=== PATIENT | male | born 1945 | race Caucasian/White ===

== ENCOUNTER 2017-02-21 21:23 | Observation (INO) | payer OTHER ==
--- NOTE | 2017-02-21 21:32 | EDPHY ---
H & P Time Seen by Provider: 02/21/17 21:32 HPI/ROS: CHIEF COMPLAINT: Word-finding difficulty HISTORY OF PRESENT ILLNESS: from EMS was normal at 1700. Discussed with the Nancy elltfbvx-sd-uim who says she was on the phone with him at 8:45 p.m. and noted that he was having trouble with words. Every 4th or 5th word would be understandable, the rest would "not be Macedonian." Or would not be understandable. On arrival the patient admits that he has some word-finding difficulty. Apparently he has some chronic left-sided deficits after previous stroke. REVIEW OF SYSTEMS: Eye: Patient denies change in vision. ENT: no sore throat Cardiac: no chest pain or syncope Pulmonary: no cough or SOB Abdomen: no vomiting, diarrhea, abdominal pain Musculoskeletal: no back pain or neck pain Skin: no rash Neuro: no headache Constitutional: no fever : no urinary symptoms A comprehensive 10 point review of systems is otherwise negative aside from elements mentioned in the history of present illness. PAST MEDICAL HISTORY: Previous stroke, hypertension Social history: Some history from the son and [id number]-rz-[id number] General Appearance: Alert and conversant, cooperative. Eyes: No scleral icterus. Extraocular motion intact. ENT, Mouth: Normal mucous membranes. Respiratory: Normal respiratory effort, breath sounds equal, lungs are clear to auscultation. Cardiovascular: Regular rate and rhythm. Gastrointestinal: Abdomen is soft and non tender. Neurological: Alert and follows simple commands Face symmetric, normal movement and sensation in all extremities. Has good senior gl accountant strength bilaterally and can lift each leg off the bed independently. Word finding difficulty; when asked to name a my pen he calls it "a television, " he is able to name my "wrist watch," when I hold up his glasses he says that they are "my wrist watch"; left visual field cut to confrontation. Skin: Warm and dry, no rashes. Musculoskeletal: No peripheral edema and no joint swelling. Psychiatric: Not agitated. Emergency Department course/MDM: Dr. Maddox 944pm [facility]. Plan for noncontrast head CT, proceed directly to angiography if negative. He is clearly out of the IV Activase window as his last known normal is 1700 tonight, which would put him greater than 4.5 hours after potential earliest onset of symptoms. 2156: Previous ED visit for expressive aphasia in October 17, 2016 reviewed by myself. Discussed with Nancy again at 2204. Admission for possible ischemic stroke. The frdvga-ku-vjw confirms that his word-finding difficulty was substantially worse than anything previously, including his episode in September of last year. Does not currently have indications for IV Activase or IR therapy. Smoking Status: Never smoked Constitutional: Initial Vital Signs Temperature (C) 36.9 C 02/21/17 21:38 Heart Rate 72 02/21/17 21:38 Respiratory Rate 18 02/21/17 21:38 Blood Pressure 168/98 H 02/21/17 21:38 O2 Sat (%) 94 02/21/17 21:38 O2 Delivery Mode Room Air Allergies/Adverse Reactions: HAY FEVER Allergy (Uncoded 02/21/17 21:37) Home Medications: Medication Instructions Recorded Acetaminophen [Tylenol 325mg (*)] 650 mg PO Q4 PRN #0 tab 11/26/14 Lisinopril [Zestril 10 mg (*)] 20 mg PO BID #0 tab 11/26/14 Tamsulosin HCl [Flomax 0.4 MG (*)] 0.4 mg PO HS #0 cap 11/26/14 amLODIPine BESYLATE [Norvasc 10 mg 10 mg PO HS #0 tab 11/26/14 (*)] hydrALAZINE [Apresoline 10 mg (*)] 10 mg PO QID PRN #0 tab 11/26/14 Atorvastatin Calcium [Lipitor 40 60 mg PO DAILY18 12/15/15 mg (*)] Clopidogrel Bisulfate [Plavix (*)] 75 mg PO DAILY #30 tab 12/15/15 Metoprolol Tartrate 12.5 mg PO BID #60 tablet 12/15/15 Medical Decision Making - Diagnostics EKG Interpretation: 12-lead EKG interpreted by me; official reading is in trace master. My interpretation is sinus rhythm with PVC, LVH. Imaging: Imaging Impressions Head CT 02/21/17 21:42 Impression: 1. Old right occipital lobe infarct. 2. No acute hemorrhage, hydrocephalus, or mass effect. 3. Cerebrovascular atherosclerosis. 4. No definite acute infarct. 5. Moderate atrophy especially bilateral occipital lobes. 6. Mild Microvascular ischemic gliosis. 7. Consider MRI of the brain without and with contrast enhancement, if there is continued clinical concern. Findings and recommendations discussed with Emergency Department physician, CARMEN WALETRS at 2150 hour, 02/21/2017. Final report concurs with initial preliminary interpretation. Chest X-Ray 02/21/17 21:46 Impression: 1. Atherosclerotic aorta. 2. No acute pulmonary disease. Head CTA 02/21/17 21:46 Impression: 1. Moderate atherosclerotic plaque of the thoracic aorta. 2. Mild atherosclerotic disease bilateral carotid bulbs, without flow-limiting stenosis, occlusion, or dissection. 3. Dominant right vertebral artery, without occlusion or dissection. Measurement of carotid stenosis is based on the residual internal carotid diameter with [place] Symptomatic Carotid Endarterectomy Trial (NASCET) based stenosis levels. CT Angiogram of the Brain Clinical Indications: Stroke protocol. Word finding difficulty, old right occipital infarct. Technique: CT angiogram of the brain and neck was performed, with the uneventful intravenous administration of 85 mL Isovue-370 contrast. Multiplanar reconstructions including 3D reconstructions performed and evaluated on [id number] workstation in order to better evaluate the [place] vessels. Images were manipulated by the radiologist at the computer workstation. Dose reduction techniques were utilized. Findings: Major vessels of the [place] are adequately displayed, demonstrating old complete occlusion of the right posterior cerebral artery, with associated right occipital lobe infarct. Left posterior cerebral artery is patent. The right internal carotid artery is smaller but patent. Bilateral anterior and middle cerebral arteries are patent, without intraluminal thrombi or complete occlusion. Impression: 1. Old infarct in the right posterior cerebral artery, with absent vessel. 2. No acute intraluminal thrombi or complete occlusion of bilateral internal carotid arteries, right vertebral artery, bilateral anterior and bilateral middle cerebral arteries. The left posterior cerebral artery appears patent. Findings and recommendations discussed with Emergency Department physician, Carmen Walters M.D., at 2215 hours, on February 21, 2017. Final report concurs with initial preliminary interpretation. Neck CTA 02/21/17 21:46 Impression: 1. Moderate atherosclerotic plaque of the thoracic aorta. 2. Mild atherosclerotic disease bilateral carotid bulbs, without flow-limiting stenosis, occlusion, or dissection. 3. Dominant right vertebral artery, without occlusion or dissection. Measurement of carotid stenosis is based on the residual internal carotid diameter with [place] Symptomatic Carotid Endarterectomy Trial (NASCET) based stenosis levels. CT Angiogram of the Brain Clinical Indications: Stroke protocol. Word finding difficulty, old right occipital infarct. Technique: CT angiogram of the brain and neck was performed, with the uneventful intravenous administration of 85 mL Isovue-370 contrast. Multiplanar reconstructions including 3D reconstructions performed and evaluated on Vitrea workstation in order to better evaluate the [place] vessels. Images were manipulated by the radiologist at the computer workstation. Dose reduction techniques were utilized. Findings: Major vessels of the [place] are adequately displayed, demonstrating old complete occlusion of the right posterior cerebral artery, with associated right occipital lobe infarct. Left posterior cerebral artery is patent. The right internal carotid artery is smaller but patent. Bilateral anterior and middle cerebral arteries are patent, without intraluminal thrombi or complete occlusion. Impression: 1. Old infarct in the right posterior cerebral artery, with absent vessel. 2. No acute intraluminal thrombi or complete occlusion of bilateral internal carotid arteries, right vertebral artery, bilateral anterior and bilateral middle cerebral arteries. The left posterior cerebral artery appears patent. Findings and recommendations discussed with Emergency Department physician, Carmen Walters M.D., at 2215 hours, on February 21, 2017. Final report concurs with initial preliminary interpretation. CT shows old right occipital infarct per Isuani, otherwise nothing acute at 9: 50 p.m., plan to proceed directly to angiography. Negative CT angio for large vessel occlusion per Isuani 2218. Differential Diagnosis: Differential considered including but not limited to seizure, stroke, hypoglycemia, intracranial bleed, TIA. Consult/Admit Bed Type: [facility] [place] [id number] Critical Care Time: Critical care time spent by me, Dr. Walters, exclusively with the care of this patient was 35 minutes, exclusive of PA or RECTIFICATION PRINTER time and exclusive of separate procedures. The organ system at risk was neurologic and I ordered multiple diagnostic studies, consultation with [facility], history from multiple sources, review of diagnostic studies; to stabilize the patient and prevent worsening of the patient's condition. - Data Points Laboratory Results: Laboratory Results 02/21/17 21:53 02/21/17 21:53 02/21/17 02/21/17 02/21/17 21:53 21:53 21:53 WBC 8.48 10^3/uL 10^3/uL (3.80-9.50) RBC 5.32 10^6/uL 10^6/uL (4.40-6.38) Hgb 16.5 g/dL g/dL (13.7-17.5) POC Hgb Hct 48.6 % % (40.0-51.0) POC Hct MCV 91.4 fL fL (81.5-99.8) MCH 31.0 pg pg (27.9-34.1) MCHC 34.0 g/dL g/dL (32.4-36.7) RDW 13.5 % % (11.5-15.2) Plt Count 166 10^3/uL 10^3/uL (150-400) MPV 10.1 fL fL (8.7-11.7) Neut % (Auto) 45.7 % % (39.3-74.2) Lymph % (Auto) 43.0 % % (15.0-45.0) [place] % (Auto) 8.5 % % (4.5-13.0) Eos % (Auto) 2.0 % % (0.6-7.6) Baso % (Auto) 0.6 % % (0.3-1.7) Nucleat RBC Rel Count 0.0 % % (0.0-0.2) Absolute Neuts (auto) 3.87 10^3/uL 10^3/uL (1.70-6.50) Absolute Lymphs (auto) 3.65 10^3/uL H 10^3/uL (1.00-3.00) Absolute Monos (auto) 0.72 10^3/uL 10^3/uL (0.30-0.80) Absolute Eos (auto) 0.17 10^3/uL 10^3/uL (0.03-0.40) Absolute Basos (auto) 0.05 10^3/uL 10^3/uL (0.02-0.10) Absolute Nucleated RBC 0.00 10^3/uL 10^3/uL (0-0.01) Immature Gran % 0.2 % % (0.0-1.1) Immature Gran # 0.02 10^3/uL 10^3/uL (0.00-0.10) PT 13.3 SEC SEC (12.0-15.0) INR 1.02 (0.83-1.16) POC Sodium Sodium 140 mEq/L mEq/L (134-144) POC Potassium Potassium 3.6 mEq/L mEq/L (3.5-5.2) POC Chloride Chloride 102 mEq/L mEq/L (97-110) Carbon Dioxide 25 mEq/l mEq/l (22-31) Anion Gap 13 mEq/L mEq/L (8-16) POC BUN BUN 28 mg/dL H mg/dL (7-23) Creatinine 1.1 mg/dL mg/dL (0.7-1.3) POC Creatinine Estimated GFR > 60 Glucose 106 mg/dL H mg/dL (70-100) POC Glucose Calcium 9.8 mg/dL mg/dL (8.5-10.4) Troponin I < 0.012 ng/mL ng/mL (0-0.034) 02/21/17 21:38 WBC RBC Hgb POC Hgb 17.0 gm/dL gm/dL (14.5-17.3) Hct POC Hct 50 % % (42.8-50.6) MCV MCH MCHC RDW Plt Count MPV Neut % (Auto) Lymph % (Auto) [place] % (Auto) Eos % (Auto) Baso % (Auto) Nucleat RBC Rel Count Absolute Neuts (auto) Absolute Lymphs (auto) Absolute Monos (auto) Absolute Eos (auto) Absolute Basos (auto) Absolute Nucleated RBC Immature Gran % Immature Gran # PT INR POC Sodium 143 mEq/L mEq/L (134-144) Sodium POC Potassium 3.4 mEq/L mEq/L (3.3-5.0) Potassium POC Chloride 102 mEq/L mEq/L (96-108) Chloride Carbon Dioxide Anion Gap POC BUN 30 mg/dL H mg/dL (7-23) BUN Creatinine POC Creatinine 1.2 mg/dL mg/dL (0.8-1.5) Estimated GFR Glucose POC Glucose 107 mg/dL H mg/dL (70-100) Calcium Troponin I Point of Care Test Results: 02/21/17 21:38 POC Sodium 143 POC Potassium 3.4 POC Chloride 102 POC BUN 30 H POC Creatinine 1.2 POC Glucose 107 H Departure - Departure Disposition: [facility] Inpatient Acute Clinical Impression: Word finding difficulty Condition: Good
[2017-02-21] MEDS ORDERED: IOPAMIDOL (ISOVUE 370) 100 ML BTL IV ONE (21:54)
[2017-02-21 21:58] LABS: % IMMATURE GRANULYOCYTES 0.2 % (0.0-1.1); ABSOLUTE IMMATURE GRANULOCYTES 0.02 10^3/uL (0.00-0.10); ADD DIFF? NO; ADD MORPH? NO; ADD SCAN? NO; ATYPICAL LYMPHOCYTE FLAG 10 (0-99); FRAGMENT RBC FLAG 0 (0-99); HEMATOCRIT 48.6 % (40.0-51.0); HEMOGLOBIN 16.5 g/dL (13.7-17.5); LEFT SHIFT FLG 0 (0-99); LIPEMIA HEMOLYSIS FLAG 90 (0-99); MEAN CELL VOLUME 91.4 fL (81.5-99.8); MEAN PLATELET VOLUME 10.1 fL (8.7-11.7); PLATELET CLUMPS FLAG 10 (0-99); PLATELET COUNT 166 10^3/uL (150-400); RED BLOOD CELL COUNT 5.32 10^6/uL (4.40-6.38); RED CELL DISTRIBUTION WIDTH 13.5 % (11.5-15.2)
[2017-02-21 22:08] LABS: CARBON DIOXIDE 25 mEq/l (22-31); CHLORIDE 102 mEq/L (97-110); INR 1.02 (0.83-1.16); POTASSIUM 3.6 mEq/L (3.5-5.2); PROTIME(PATIENT) 13.3 SEC (12.0-15.0); SODIUM 140 mEq/L (134-144)
[2017-02-21 22:09] LABS: ANION GAP 13 mEq/L (8-16); CALCIUM 9.8 mg/dL (8.5-10.4); CREATININE 1.1 mg/dL (0.7-1.3); GLOMERULAR FILTRATION RATE > 60; GLUCOSE 106 mg/dL (70-100)
[2017-02-21 22:20] LABS: TROPONIN I < 0.012 ng/mL (0-0.034)
--- NOTE | 2017-02-21 22:20 | CPEKG ---
Heart Rate: 63 RR Interval: 952 P-R Interval: 184 QRSD Interval: 84 QT Interval: 424 QTC Interval: 435 P [place]: 21 QRS [place]: -2 T Wave [place]: 11 EKG Severity - ABNORMAL ECG - EKG Impression: SINUS RHYTHM EKG Impression: PAIRED VENTRICULAR PREMATURE COMPLEXES EKG Impression: PROBABLE LEFT ATRIAL ABNORMALITY EKG Impression: LEFT VENTRICULAR HYPERTROPHY Electronically Signed By: Sixto Mathew 21-Feb-2017 22:21:29
[2017-02-22] MEDS ORDERED: LABETALOL HCL 5 MG/ML 20 ML MDV IVP PRN (01:15)
[2017-02-22] MEDS ORDERED: ONDANSETRON 4 MG/2 ML VIAL IVP PRN (01:15)
[2017-02-22] MEDS ORDERED: ONDANSETRON DISINTEGRATING 4 MG TAB PO PRN (01:15)
[2017-02-22] MEDS ORDERED: ACETAMINOPHEN 325 MG TAB PO PRN (01:15)
[2017-02-22] MEDS ORDERED: NS 1,000 ML IV SCH (01:15)
--- NOTE | 2017-02-22 01:58 | PDGENHP ---
History and Physical - Chief Complaint word salad, h/o CVA - History of Present Illness 71 yo male with h/o htn, hld and prior CVA in 2013 presented to ED after his cadxhv-ou-plv noted him to be speaking word eloina on the phone. He was last reported to be normal at 1700. No focal weakness or dizziness. No change from baseline visual deficits. He has a h/o prior CVA in 2013 and has had residual left sided weakness, left visual field cut, and mild expressive aphasia. He then presented in 11/2015 with TIA symptoms and at that time his daily aspirin was changed to Plavix. He has had at least 2 prolonged cardiac event monitors, which did not show A fib. His neurologist is Dr. Desai at [place]. He lives at [facility] and his vmdjpu-yl-pim is his DPOA. In the ED, [place] neurolog[facility] was consulted. His initial CT head was negative. He was not deemed a candidate for TpA given his onset of symptoms was 4.5 hrs prior to arrival. CTA head and neck was performed and is also negative. History Information - Allergies/Home Medication List Allergies/Adverse Reactions: HAY FEVER Allergy (Uncoded 02/21/17 21:37) Home Medications: Atorvastatin Calcium [Lipitor 40 mg (*)] 60 mg PO DAILY18 12/15/15 [Last Taken 12/14/15] I have personally reviewed and updated: family history, medical history, social history, surgical history - Past Medical History hypertension, hyperlipidemia Additional medical history: CVA 2013, TIA 2015, BPH - Surgical History Reports: no pertinent surgical hx - Family History Additional family history: Both parents are - Social History Smoking Status: Never smoked Alcohol Use: None Drug Use: None Additional social history: Lives at [facility]. Ryuegh-yd-mam is DPOA. Review of Systems ROS: 10pt was reviewed & negative except for what was stated in HPI & below Physical Exam Temp Pulse Resp BP Pulse Ox 36.9 C 59 L 16 137/81 H 93 02/22/17 00:09 02/22/17 00:09 02/22/17 00:09 02/22/17 00:09 02/22/17 00:09 Constitutional: no apparent distress Eyes: PERRL Ears, Nose, Mouth, Throat: moist mucous membranes, other (left visual field deficit to midline) Cardiovascular: regular rate and rhythym, no murmur, rub, or gallop, other ( frequent PVC's) Respiratory: no respiratory distress, clear to auscultation Gastrointestinal: normoactive bowel sounds, soft, non-tender abdomen Skin: warm Musculoskeletal: full muscle strength Neurologic: AAOx3, other (mild expressive aphasia, though speech is sensical and mostly fluent. 5/5 b/l LE and UE muscle strength, director of strategic sales strength symmetric. No facial droop. Neg pronator drift) Psychiatric: interacting appropriately Lab Data & Imaging Review 02/21/17 21:53 02/21/17 21:53 WBC 8.48 10^3/uL (3.80-9.50) 02/21/17 21:53 RBC 5.32 10^6/uL (4.40-6.38) 02/21/17 21:53 Hgb 16.5 g/dL (13.7-17.5) 02/21/17 21:53 POC Hgb 17.0 gm/dL (14.5-17.3) 02/21/17 21:38 Hct 48.6 % (40.0-51.0) 02/21/17 21:53 POC Hct 50 % (42.8-50.6) 02/21/17 21:38 MCV 91.4 fL (81.5-99.8) 02/21/17 21:53 MCH 31.0 pg (27.9-34.1) 02/21/17 21:53 MCHC 34.0 g/dL (32.4-36.7) 02/21/17 21:53 RDW 13.5 % (11.5-15.2) 02/21/17 21:53 Plt Count 166 10^3/uL (150-400) 02/21/17 21:53 MPV 10.1 fL (8.7-11.7) 02/21/17 21:53 Neut % (Auto) 45.7 % (39.3-74.2) 02/21/17 21:53 Lymph % (Auto) 43.0 % (15.0-45.0) 02/21/17 21:53 [place] % (Auto) 8.5 % (4.5-13.0) 02/21/17 21:53 Eos % (Auto) 2.0 % (0.6-7.6) 02/21/17 21:53 Baso % (Auto) 0.6 % (0.3-1.7) 02/21/17 21:53 Nucleat RBC Rel Count 0.0 % (0.0-0.2) 02/21/17 21:53 Absolute Neuts (auto) 3.87 10^3/uL (1.70-6.50) 02/21/17 21:53 Absolute Lymphs (auto) 3.65 10^3/uL (1.00-3.00) H 02/21/17 21:53 Absolute Monos (auto) 0.72 10^3/uL (0.30-0.80) 02/21/17 21:53 Absolute Eos (auto) 0.17 10^3/uL (0.03-0.40) 02/21/17 21:53 Absolute Basos (auto) 0.05 10^3/uL (0.02-0.10) 02/21/17 21:53 Absolute Nucleated RBC 0.00 10^3/uL (0-0.01) 02/21/17 21:53 Immature Gran % 0.2 % (0.0-1.1) 02/21/17 21:53 Immature Gran # 0.02 10^3/uL (0.00-0.10) 02/21/17 21:53 PT 13.3 SEC (12.0-15.0) 02/21/17 21:53 INR 1.02 (0.83-1.16) 02/21/17 21:53 POC Sodium 143 mEq/L (134-144) 02/21/17 21:38 Sodium 140 mEq/L (134-144) 02/21/17 21:53 POC Potassium 3.4 mEq/L (3.3-5.0) 02/21/17 21:38 Potassium 3.6 mEq/L (3.5-5.2) 02/21/17 21:53 POC Chloride 102 mEq/L (96-108) 02/21/17 21:38 Chloride 102 mEq/L (97-110) 02/21/17 21:53 Carbon Dioxide 25 mEq/l (22-31) 02/21/17 21:53 Anion Gap 13 mEq/L (8-16) 02/21/17 21:53 POC BUN 30 mg/dL (7-23) H 02/21/17 21:38 BUN 28 mg/dL (7-23) H 02/21/17 21:53 Creatinine 1.1 mg/dL (0.7-1.3) 02/21/17 21:53 POC Creatinine 1.2 mg/dL (0.8-1.5) 02/21/17 21:38 Estimated GFR > 60 02/21/17 21:53 Glucose 106 mg/dL (70-100) H 02/21/17 21:53 POC Glucose 107 mg/dL (70-100) H 02/21/17 21:38 Calcium 9.8 mg/dL (8.5-10.4) 02/21/17 21:53 Troponin I < 0.012 ng/mL (0-0.034) 02/21/17 21:53 Assessment & Plan Assessment: Non-sensical speech likely due to acute CVA - H/O prior CVA 2013 and TIA 2015. 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 No acute stroke seen on CTA head, old infarct in right posterior cerebral artery noted. No flow limiting stenosis on CTA neck. His symptoms have mostly resolved and he has returned to his baseline mild expressive aphasia symptoms. -Brain MRI and echo in am -Permissive htn, IV Labetalol for BP >220/120 -Monitor on tele. He's had 2 prior prolonged cardiac monitors with no e/o A fib -Cont Plavix -Neurology consult requested -PT/OT, speech evals planned Hypertension - permissive htn as above. Awaiting medication reconciliation. Hyperlipidemia - cont statin. DVT PPLX - Lovenox Code status - full code Dispo - admit to inpt status given acute CVA and need for further workup
[2017-02-22] MEDS ORDERED: D50W 25 GM/50 ML SYR IVP PRN (01:59)
[2017-02-22 05:42] LABS: CHOLESTEROL 94 mg/dL (140-220); CHOLESTEROL/HDL RATIO 2.24 RATIO (1.00-4.97); HIGH DENSITY LIPOPROTEIN 42 mg/dL (40-65); LDL/HDL RATIO 0.93 RATIO (1.00-3.64); LOW DENSITY LIPOPROTEIN 39 mg/dL (80-100); NON-HIGH DENSITY LIPOPROTEIN 52 mg/dL (90-129); TRIGLYCERIDE 67 mg/dL (40-150); VERY LOW DENSITY LIPOPROTEINS 13 mg/dL (8-25)
[2017-02-22] MEDS ORDERED: CLOPIDOGREL BISULFATE 75 MG TAB PO SCH ×2 (09:00→13:30)
[2017-02-22] MEDS ORDERED: ATORVASTATIN CALCIUM 40 MG TAB PO SCH (09:00)
[2017-02-22] MEDS ORDERED: ENOXAPARIN 40 MG/0.4 ML SYR SC SCH (09:00)
--- NOTE | 2017-02-22 09:11 | ECHO ---
[id number] + + [address] : : [place] [address] : : [phone] + + Adult Echocardiographic Report + -----+ :Name: PEE MANDUJANO Marcus Date: 02/22/2017 07:50 AM : : Hospital Admission Number: [id number] Location : 345: :: 1945 Gender: Male Height: 67 in : :Age: 71 yrs Race: WH Weight: 180 lb : :Reason For Study: Ischemic stroke : : BSA: 1.9 meters2 : + -----+ MMode/2D Measurements \T\ Calculations IVSd: 0.62 cm LVIDd: 5.2 cm FS: 36.1 % Ao root diam: LVPWd: 0.97 cm LVIDs: 3.3 cm EDV(Teich): 4.2 cm 127.4 ml LA dimension: ESV(Teich): 4.2 cm 44.1 ml EF(Teich): 65.4 % LVLd ap4: 7.6 cm SV(MOD-sp4): EDV(MOD-sp4): 32.0 ml 59.0 ml LVLs ap4: 6.8 cm ESV(MOD-sp4): 27.0 ml EF(MOD-sp4): 54.2 % Normal Measurement Values: + + :LVIDd (3.5-5.7cm) IVSd (0.6-1.1cm) LVPWd (0.6-1.1cm) Aortic Root (2.0-3.7cm)Left Atrium (1.5-4.0cm): :LV Vol(d) (76-115ml) LV Vol(s) (29-48ml) Ejec Fraction (50-65%)PV Ki (0.6- 1.2m/s) TV Ki (0.4-1.0m/s) : :MV E Ki (0.8-1.0m/s)MV A Ki (0.3-1.0m/s)LVOT Ki (0.7-1.2m/s) Asc Ao Ki ( 0.9-1.8m/s) : + + Doppler Measurements \T\ Calculations MV E max ki: Ao mean P.5 mmHg AI max ki: 325.8 cm/sec 108.1 cm/sec Ao V2 mean: AI max P.5 mmHg MV A max ki: 85.9 cm/sec 102.0 cm/sec AI dec slope: MV E/A: 1.3 Ao V2 VTI: 38.1 cm 184.6 cm/sec2 AI P1/2t: 516.9 msec Left Ventricle The left ventricle is normal in size. There is normal left ventricular wall thickness. Left ventricular systolic function is normal. Ejection Fraction = 65-70%. Septal motion is consistent with conduction abnormality. Right Ventricle The right ventricle is normal in size and function. Atria The left atrium is mildly dilated. Right atrial size is normal. Mitral Valve Nodular thickening of the posterior leaflet of the mitral valve. There is no evidence of mitral valve prolapse. There is no mitral valve stenosis. There is mild mitral regurgitation. Tricuspid Valve Normal tricuspid valve. There is trace tricuspid regurgitation. Aortic Valve Bicuspid aortic valve. There is fusion of the right and left coronary cusps. Moderate AV calcification. There is no aortic stenosis. Mild aortic regurgitation. Pulmonic Valve The pulmonic valve is normal in structure and function. There is no pulmonic valvular regurgitation. Great Vessels The aortic root is normal size. Pericardium/Pleural There is no pericardial effusion. Conclusion A complete two-dimensional transthoracic echocardiogram was performed (2D, M-mode, Doppler and color flow Doppler). No bubble study needed (done with TRANG 10/03 when the bubble study was negative). Frequent ectopy throughout exam Left ventricular systolic function is normal. Ejection Fraction = 65-70%. Septal motion is consistent with conduction abnormality. The left atrium is mildly dilated. Nodular thickening of the posterior leaflet of the mitral valve There is mild mitral regurgitation. There is trace tricuspid regurgitation. Bicuspid aortic valve. There is fusion of the right and left coronary cusps. Moderate AV calcification. No Mild aortic regurgitation. Compared with 12/15/2015, the aortic valve is more clearly bicuspid and was demonstrated as a bicuspid valve on 09/2014 TRANG. Ascending aorta was not well imaged on current study, but is know to be borderline dilated based on 12/15/2015 TTE. Final Reading Physician: Dr Maylin Valladares electronically signed on 02/22/2017 09:10 AM Ordering Physician: Luciana Arango Performed By: Twyla Okeefe, DAVIDCS
[2017-02-22] MEDS: INSULIN LISPRO 100 UNIT/ML SC SCH ×2 (09:36→12:38)
[2017-02-22] MEDS ORDERED: HYDROCORTISONE 1% CREAM TP PRN (13:06)
[2017-02-22] MEDS ORDERED: DOCUSATE SODIUM 100 MG CAP PO PRN (13:06)
--- NOTE | 2017-02-22 15:53 | GDS ---
[f rep st] DISCHARGE SUMMARY DISCHARGE DIAGNOSES: 1. Nonsensical speech thought to be due to an acute confusional episode. 2. Hypertension. 3. Dyslipidemia. 4. History of stroke. 5. History of dementia. 6. Bicuspid aortic valve. 7. Premature ventricular contractions. CONSULTANTS: Dr. Saeed Lynn, Neurology. HOSPITAL COURSE AND STAY BY PROBLEM: Acute confusional state: The patient [facility] to the [facility] with nonsensical speech. He underwent a stroke workup with CTA of the head and neck, as well as a brain MRI. The brain MRI was negative for acute stroke. On day of discharge, the patient was eval uated by Dr. Lynn from Neurology who I discussed the case with, who tells me that he thinks that his symptoms were related to an acute confusional state given that he does not have any findings on MRI and did not have any weakness to really make him think that this was a new ischemic event or TIA. PHYSICAL EXAMINATION: VITAL SIGNS: On day of discharge, blood pressure 154/72, pulse of 59, respir atory rate 14, O2 saturation 96% on room air. Temperature afebrile. GENERAL: No acute distress. HEART: S1, S2. LUNGS: Clear. ABDOMEN: Soft. EXTREMITIES: No edema. NEUROLOGIC: Face is symm etric. Cranial nerves 2-12 grossly intact. There is no pronator drift. Speech is fluent. The pat ient is confused, which is his baseline. DIAGNOSTICS DONE THIS HOSPITAL STAY: 1. Brain MRI done 02/22/2017: Refer to report. 2. Echocardiogram done 02/22/2017: Refer to report. DISCHARGE MEDICATIONS: The patient will be discharged on his current home medication regimen. Plea se refer to discharge medication reconciliation in [facility]. DISCHARGE INSTRUCTIONS: The patient will be discharged back to his assisted living where he should follow up with his neurologist. He should also be seen by his primary care provider and possibly a interpretative dancer for outpatient Holter monitoring. /[id number]
[2017-02-22 15:58] VITALS: BP 142/78; PULSE 50; RESP 15; TEMP 97.4; O2SAT 94
--- NOTE | 2017-02-22 16:53 | PDIAF ---
- Diagnosis Diagnosis: transient confusion Code Status: Full Code - Medication Management Discharge Medications: Medications to Continue on Transfer Acetaminophen [Tylenol 325mg (*)] 325 - 650 mg PO Q6HRS PRN 02/22/17 [Last Taken Unknown] Atorvastatin Calcium [Lipitor 20 mg (*)] 60 mg PO HS 02/22/17 [Last Taken ] Clopidogrel Bisulfate [Plavix (*)] 75 mg PO DAILY 02/22/17 [Last Taken 02/22/17] Cyanocobalamin [Vitamin B12 (*)] 1,000 mcg PO DAILY 02/22/17 [Last Taken ] Docusate Sodium [Colace 100 MG (*)] 100 mg PO DAILY PRN 02/22/17 [Last Taken Unknown] Donepezil HCl [Aricept 5 MG (*)] 2.5 mg PO DAILY 02/22/17 [Last Taken 02/22/17] Ergocalciferol [Vitamin D2 (*)] 50,000 unit PO TU 02/22/17 [Last Taken 02/21/17] Finasteride [Proscar 5 MG (*)] 5 mg PO HS 02/22/17 [Last Taken 02/21/17] Hydrocortisone 1% [Hydrocortisone 1% cream (*)] 1 alexys TP BID PRN 02/22/17 [Last Taken Unknown] Lisinopril [Zestril 20 mg (*)] 20 mg PO HS 02/22/17 [Last Taken 02/21/17] Metoprolol Tartrate [Lopressor 25 mg (*)] 12.5 mg PO BID 02/22/17 [Last Taken ] Tamsulosin HCl [Flomax 0.4 MG (*)] 0.4 mg PO HS 02/22/17 [Last Taken 02/21/17] amLODIPine BESYLATE [Norvasc 5 mg (*)] 5 mg PO DAILY 02/22/17 [Last Taken ] Discharge Medications: Refer to the Discharge Home Medication list for PRN reason. - Orders Services needed: Physical Therapy, Occupational Therapy, Speech Language Pathologist Diet Recommendation: no restrictions on diet Diet Texture: Regular Texture Diet - Follow Up Care Current Providers and Referrals: Patient,NotPresent [Unknown] - As per Instructions
--- NOTE | 2017-02-22 19:48 | GCON ---
[f rep st] CONSULTATION INPATIENT CONSULTATION NOTE DATE OF CONSULTATION: 02/22/2017 REFERRING PHYSICIAN: Luciana Arango MD CHIEF COMPLAINT: Transient aphasia. HISTORY OF PRESENT ILLNESS: Dr. Luciana Arango of the hospitalist service consulted Neurology for transient aphasia. Results of evaluation are placed in the EMR for review. This is a 71-year-old male who had a stroke in 2013 in the right occipital region, leaving him with left visual field cut, left subtle facial weakness, and cognitive disorder, that is causing vascular dementia. In 2015, he had a TIA, and his aspirin therapy was escalated to Plavix. He was also on a statin. He lives in a snf facility, and had been doing well until February. His uukpfo-ai-awp was speaking to him on the phone, and she noted sudden onset of aphasic speech, similar to what he had when he had his stroke in 2013. She alerted the care home facility, who transported the patient to the emergency room. When he arrived in the emergency room, he did still have some aphasic speech, but was not a tPA candidate as his last known normal time was estimated to be greater than 4-1/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 A brain MRI was performed that showed no stroke. Transthoracic echocardiogram showed no cardiac thrombus. His telemetry so far has not shown any atrial fibrillation, and he reported after his TIA in 2016, a 30-day outpatient groundwater monitoring technician showed no proximal atrial fibrillation. He currently is back at his baseline today and feels fine. His [id number]-[id number]-mix is at the bedside, and says she also sees him to be at his baseline, which includes left-sided visual field cut, subtle left facial weakness, and significant cognitive difficulties since his stroke in 2013. PAST MEDICAL HISTORY: Hypertension, hyperlipidemia, right occipital stroke 2013 , TIA in 2016, BPH. FAMILY HISTORY: Both parents . SOCIAL HISTORY: Lives in assisted nursing facility. REVIEW OF SYSTEMS: A 10-point review of systems is negative except what was placed in the HPI. PHYSICAL EXAM: VITAL SIGNS: Blood pressure 154/72, heart rate 59, respirations 14, saturating 96% on room air. Temperature 37.1 degrees Celsius. GENERAL: No acute distress. EYES: Funduscopic exam cannot not visualize optic discs. LUNGS: Clear to auscultation bilaterally. No rhonchi or rales. HEART: Regular rate and rhythm. No murmurs. No carotid bruits auscultated. NEUROLOGIC: Mental status alert and oriented to person and month, but not year. He was able to guess the city eventually, but quite a bit of difficulty determining which city we are in. His fund of knowledge and memory do appear slightly impaired consistent with his known dementia diagnosis, from his previous stroke. He is aware, and language functions were generally normal. Cranial nerves: Pupils equal, round, react to light. Visual faulkner show a left -sided homonymous hemianopsia, from his previous stroke. Extraocular muscles are intact. Intact sensation. He does have slight facial motor irregularity on the left since his stroke, but nothing significant. Bilateral hearing intact to conversation. Uvula raises symmetrically. Tongue protrudes midline. Traps 5/5 strength. Motor exam: Normal tone and strength in all 4 extremities. Sensory exam: All 4 extremities intact to light touch. Reflexes : Bilateral biceps, brachioradialis, patellars 2/4. Coordination: Bilateral [id number], rapid alternate movements show slow, slightly ataxic hand tapping of both hands, but not lateralized on either side. Gait deferred. LABS: February 22, 2017, LDL is 39. Radiology February 22, 2017, brain MRI shows an old right occipital stroke, but no acute strokes. I personally visualized this study. February 22, 2017, a CT angiogram of the head and neck shows an absent right HOTEL HOUSEMAN by the old stroke, but otherwise no acute changes. February 22, 2017, a transthoracic echocardiogram shows no cardiac thrombus. ASSESSMENT: 1. 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 2. Transient recurrence of aphasia on February 21, 2017: Given the patient has had recurrence of old aphasia seen on previous stroke with complete resolution since, and the brain MRI shows no acute stroke, coupled with the fact that he has vascular dementia, makes me believe that he likely had a form of an acute confusional state causing sundowning and recurrence of old neurologic deficits. I do not believe this is a new transient ischemic attack or stroke. I discussed this in detail with he and his [id number], who is at bedside. They are in agreement with my logic. He is also already on maximal medical management for stroke prevention with a statin with LDL of 39 and Plavix. I would not escalate care at this time. They will follow up with the outpatient neurologist, routinely. RECOMMENDATIONS: 1. Continue Aricept at current dose. 2. Agree with Lipitor 40 with LDL goal less than 70, currently at 39. 3. Outpatient blood pressure goal less than 140/90. 4. A1c goal less than 7.0, for outpatient followup. 5. Continue Plavix 75 mg daily. 6. Return to the assisted living facility. 7. Follow up routinely with your outpatient neurologist. 8. No further neurologic workup needed. /[id number]/MODL MTDD
[2017-02-22] MEDS ORDERED: FINASTERIDE 5 MG TAB PO SCH (21:00)
[2017-02-22] MEDS ORDERED: ATORVASTATIN CALCIUM 20 MG TAB PO SCH (21:00)
[2017-02-22] MEDS ORDERED: TAMSULOSIN HCL 0.4 MG CAP PO SCH (21:00)
[2017-02-22] MEDS ORDERED: LISINOPRIL 20 MG TAB PO SCH (21:00)
[2017-02-23] MEDS ORDERED: DONEPEZIL HCL 5 MG TAB PO SCH (09:00)
[2017-02-23] MEDS ORDERED: CYANO/VITAMIN B12 1000 MCG TAB PO SCH (09:00)
[2017-02-28] MEDS ORDERED: ERGOCALCIFEROL 50,000 I.UNIT CAP PO SCH (13:06)
== END 2017-02-22 16:31 | disposition home health service (06) ==
LOC: EDUNIT# → INTOOBSV 23:11 → F3N 02-22 00:21
PROVIDERS: ADMIT Hospitalist; ATTEND Family Medicine
DX: R41.0 Disorientation, unspecified (principal); I69.320 Aphasia following cerebral infarction; F01.50 Vascular dementia, unspecified severity, without behavioral disturbance, psychotic disturbance, mood disturbance, and anxiety; I10 Essential (primary) hypertension; E78.5 Hyperlipidemia, unspecified; I49.3 Ventricular premature depolarization; Q23.1 Congenital insufficiency of aortic valve; I69.312 Visuospatial deficit and spatial neglect following cerebral infarction; I69.354 Hemiplegia and hemiparesis following cerebral infarction affecting left non-dominant side; I69.318 Other symptoms and signs involving cognitive functions following cerebral infarction; N40.0 Benign prostatic hyperplasia without lower urinary tract symptoms; Z79.01 Long term (current) use of anticoagulants; Z79.02 Long term (current) use of antithrombotics/antiplatelets
CPT/HCPCS: 70450; 70496; 70498; 70551; 71010; 92523; 93005; 93306; 97162; 97166; 99291; G0378; G8987; G8988; G9159; G9160; J1650; Q9967; 82947-QW

== ENCOUNTER 2017-03-28 19:29 | Inpatient (IN) | payer OTHER ==
--- NOTE | 2017-03-28 19:44 | CPEKG ---
Heart Rate: 116 RR Interval: 517 P-R Interval: 184 QRSD Interval: 80 QT Interval: 304 QTC Interval: 423 P Alma: 53 QRS Alma: 18 EKG Severity - BORDERLINE ECG - EKG Impression: SINUS TACHYCARDIA EKG Impression: CONSIDER ANTERIOR INFARCT EKG Impression: BORDERLINE T ABNORMALITIES, DIFFUSE LEADS Electronically Signed By: Dany Mccormick 28-Mar-2017 21:30:21
[2017-03-28 19:55] LABS: % IMMATURE GRANULYOCYTES 2.6 % (0.0-1.1); ABSOLUTE IMMATURE GRANULOCYTES 0.28 10^3/uL (0.00-0.10); ABSOLUTE NRBC COUNT 0.02 10^3/uL (0-0.01); ADD DIFF? NO; ADD MORPH? NO; ADD SCAN? NO; ATYPICAL LYMPHOCYTE FLAG 20 (0-99); FRAGMENT RBC FLAG 0 (0-99); HEMATOCRIT 52.9 % (40.0-51.0); HEMOGLOBIN 17.6 g/dL (13.7-17.5); LEFT SHIFT FLG 20 (0-99); LIPEMIA HEMOLYSIS FLAG 80 (0-99); MEAN CELL HEMOGLOBIN 31.5 pg (27.9-34.1); MEAN CELL HEMOGLOBIN CONCENTR. 33.3 g/dL (32.4-36.7); MEAN CELL VOLUME 94.6 fL (81.5-99.8); MEAN PLATELET VOLUME 10.1 fL (8.7-11.7); NRBC-AUTO% 0.2 % (0.0-0.2); PLATELET CLUMPS FLAG 20 (0-99); PLATELET COUNT 195 10^3/uL (150-400); RED BLOOD CELL COUNT 5.59 10^6/uL (4.40-6.38); RED CELL DISTRIBUTION WIDTH 13.1 % (11.5-15.2)
[2017-03-28 20:01] LABS: INR 1.09 (0.83-1.16)
[2017-03-28 20:02] LABS: APTT 31.8 SEC (23.0-38.0)
[2017-03-28] MEDS ORDERED: ALTEPLASE 100 MG/100 ML VIAL IV ONE ×2 (20:03→20:23)
[2017-03-28] MEDS ORDERED: IOPAMIDOL (ISOVUE 370) 100 ML BTL IV ONE (20:06)
[2017-03-28 20:09] LABS: ANION GAP 24 mEq/L (8-16); CALCIUM 9.7 mg/dL (8.5-10.4); CARBON DIOXIDE 15 mEq/l (22-31); CHLORIDE 103 mEq/L (97-110); CREATININE 1.3 mg/dL (0.7-1.3); GLOMERULAR FILTRATION RATE 54; GLUCOSE 149 mg/dL (70-100); POTASSIUM 4.2 mEq/L (3.5-5.2); SODIUM 142 mEq/L (134-144)
[2017-03-28] MEDS ORDERED: NS 100 ML BAG IV ONE (20:09)
[2017-03-28 20:20] LABS: TROPONIN I < 0.012 ng/mL (0-0.034)
[2017-03-28] MEDS ORDERED: ALTEPLASE 1 MG/ML SYR IV ONE (20:23)
[2017-03-28] MEDS ORDERED: NS 50 ML IV ONE (20:23)
--- NOTE | 2017-03-28 20:56 | EDPHY ---
H & P Time Seen by Provider: 03/28/17 19:33 HPI/ROS: Chief complaint. Stroke activation HPI. 71-year-old male with history of dementia and previous stroke last seen normal about 30 minutes ago. He was found on the floor at his residence in the assisted living. He has garbled speech and apparently the history we have is that he normally speaks in full sentences. He is confused and really not able to give any history. No obvious injury from being found on the floor. Appears to move all extremities and not have a facial droop. Patient was admitted 1 month ago for nonsensical speech that was thought to be due to an acute confusional episode and had a negative CTA of the head and neck and negative brain MRI. Patient is on Plavix but no other anticoagulants. No other history is known in terms of illness recently. ROS Constitutional. no fever/chills, no weakness Eyes. no problems with vision ENT. no sore throat, no nasal drainage Cardiovascular. no chest pain Respiratory. no shortness of breath, no cough Abdominal. no abdominal pain, no nausea/vomiting, no diarrhea . no problems urinating MS. no calf pain/swelling, no neck/back pain, no joint pain Skin. no rash Lymph. no swollen glands Neuro. Garbled, nonsensical speech. Can't walk. Past Medical/Surgical History: Past medical history hypertension, dyslipidemia, CVA, dementia, bicuspid aortic valve Social History: Single, nonsmoker, no alcohol Smoking Status: Never smoked Physical Exam: General Appearance: Alert well-developed male moderate distress vital signs are stable Eyes: Pupils equal and round no pallor or injection. ENT, Mouth: Mucous membranes are moist. Respiratory: There are no retractions, lungs are clear to auscultation. Cardiovascular: Regular rate and rhythm. Gastrointestinal: Abdomen is soft and nontender, no masses, bowel sounds normal. Neurological: Awake and alert. Motor exam grossly normal. Unable to test sensory exam is the patient is not cooperative. Patient appears not to be oriented and answers all questions with November, December, January. Skin: Warm and dry, no rashes. Musculoskeletal: Neck is supple nontender. Extremities symmetrical, full range of motion. Psychiatric: Patient is oriented X 0, there is no agitation. Constitutional: Initial Vital Signs Temperature (C) 37 C 03/28/17 19:48 Heart Rate 110 H 03/28/17 19:48 Respiratory Rate 16 03/28/17 19:48 Blood Pressure 134/87 H 03/28/17 19:48 O2 Sat (%) 109 H 03/28/17 19:48 O2 Delivery Mode Room Air Allergies/Adverse Reactions: perfume Allergy (Verified 03/28/17 19:33) detergents Allergy (Uncoded 03/28/17 19:33) HAY FEVER Allergy (Uncoded 02/21/17 21:37) Home Medications: Medication Instructions Recorded Acetaminophen [Tylenol 325mg (*)] 325 - 650 mg PO Q6HRS PRN 02/22/17 Atorvastatin Calcium [Lipitor 20 60 mg PO HS 02/22/17 mg (*)] Clopidogrel Bisulfate [Plavix (*)] 75 mg PO DAILY 02/22/17 Cyanocobalamin [Vitamin B12 (*)] 1,000 mcg PO DAILY 02/22/17 Docusate Sodium [Colace 100 MG (*)] 100 mg PO DAILY PRN 02/22/17 Donepezil HCl [Aricept 5 MG (*)] 2.5 mg PO DAILY 02/22/17 Ergocalciferol [Vitamin D2 (*)] 50,000 unit PO TU 02/22/17 Finasteride [Proscar 5 MG (*)] 5 mg PO HS 02/22/17 Hydrocortisone 1% [Hydrocortisone 1 alexys TP BID PRN 02/22/17 1% cream (*)] Lisinopril [Zestril 20 mg (*)] 20 mg PO HS 02/22/17 Metoprolol Tartrate [Lopressor 25 12.5 mg PO BID 02/22/17 mg (*)] Tamsulosin HCl [Flomax 0.4 MG (*)] 0.4 mg PO HS 02/22/17 amLODIPine BESYLATE [Norvasc 5 mg 5 mg PO DAILY 02/22/17 (*)] Medical Decision Making - Diagnostics EKG Interpretation: EKG interpreted by me shows sinus tachycardia with normal intervals. Possible old inferior GA. QRS is otherwise normal there is no significant ST elevation or depression. Rate is 116 Imaging Results: Imaging Impressions Head CT 03/28/17 19:34 Impression: 1. No acute intracranial hemorrhage or evidence of acute cortical ischemia. 2. Old right occipital and posteromedial right temporal lobe infarction, with associated encephalomalacia, is unchanged. Findings discussed with Emergency Department physician, Dany Mccormick M.D. at March 28, 2017 at 1945 hours. Chest X-Ray 03/28/17 19:49 Impression: 1. Hypoventilation and minimal bibasilar atelectasis. 2. Otherwise nothing acute. No evidence of aspiration. Procedures: IV normal saline, monitor ED Course/Re-evaluation: I did the initial evaluation in the hallway on the way to CT. Initial head CT noncontrast is normal without evidence of hemorrhage I consulted and discussed case with Dr. Gómez Neurology at [facility]. He examines the patient via the robot. recommends proceeding with tPA. He recommends CTA of head and neck. If patient has a large vessel lesion that would lend itself to interventional Radiology the plan will be to transfer the patient to [place]. The patient however does not have a large vessel lesion. Serial exams the patient remains unchanged. Tox and alcohol screens are sent. I consulted and discussed case with Dr. simmons, hospitalist, who agrees to the admission Records are reviewed from previous hospital visits and the halfway facility. There is no family present for discussion. Differential Diagnosis: I considered CVA, intracranial bleeding. Certainly possible the patient had a seizure. Critical Care Time: Critical care time exclusive procedures 45 minutes - Data Points Laboratory Results: Laboratory Results 03/28/17 18:35 03/28/17 18:35 03/28/17 03/28/17 03/28/17 19:28 18:35 18:35 WBC RBC Hgb POC Hgb 17.3 gm/dL gm/dL (14.5-17.3) Hct POC Hct 51 % H % (42.8-50.6) MCV MCH MCHC RDW Plt Count MPV Neut % (Auto) Lymph % (Auto) Haakon % (Auto) Eos % (Auto) Baso % (Auto) Nucleat RBC Rel Count Absolute Neuts (auto) Absolute Lymphs (auto) Absolute Monos (auto) Absolute Eos (auto) Absolute Basos (auto) Absolute Nucleated RBC Immature Gran % Immature Gran # PT 14.0 SEC SEC (12.0-15.0) INR 1.09 (0.83-1.16) APTT 31.8 SEC SEC (23.0-38.0) POC Sodium 144 mEq/L mEq/L (134-144) Sodium 142 mEq/L mEq/L (134-144) POC Potassium 3.6 mEq/L mEq/L (3.3-5.0) Potassium 4.2 mEq/L mEq/L (3.5-5.2) POC Chloride 105 mEq/L mEq/L (96-108) Chloride 103 mEq/L mEq/L (97-110) Carbon Dioxide 15 mEq/l L mEq/l (22-31) Anion Gap 24 mEq/L H mEq/L (8-16) POC BUN 26 mg/dL H mg/dL (7-23) BUN 22 mg/dL mg/dL (7-23) Creatinine 1.3 mg/dL mg/dL (0.7-1.3) POC Creatinine 1.3 mg/dL mg/dL (0.8-1.5) Estimated GFR 54 Glucose 149 mg/dL H mg/dL (70-100) POC Glucose 149 mg/dL H mg/dL (70-100) Calcium 9.7 mg/dL mg/dL (8.5-10.4) Troponin I < 0.012 ng/mL ng/mL (0-0.034) 03/28/17 18:35 WBC 10.78 10^3/uL H 10^3/uL (3.80-9.50) RBC 5.59 10^6/uL 10^6/uL (4.40-6.38) Hgb 17.6 g/dL H g/dL (13.7-17.5) POC Hgb Hct 52.9 % H % (40.0-51.0) POC Hct MCV 94.6 fL fL (81.5-99.8) MCH 31.5 pg pg (27.9-34.1) MCHC 33.3 g/dL g/dL (32.4-36.7) RDW 13.1 % % (11.5-15.2) Plt Count 195 10^3/uL 10^3/uL (150-400) MPV 10.1 fL fL (8.7-11.7) Neut % (Auto) 38.5 % L % (39.3-74.2) Lymph % (Auto) 50.9 % H % (15.0-45.0) Haakon % (Auto) 6.2 % % (4.5-13.0) Eos % (Auto) 1.2 % % (0.6-7.6) Baso % (Auto) 0.6 % % (0.3-1.7) Nucleat RBC Rel Count 0.2 % % (0.0-0.2) Absolute Neuts (auto) 4.14 10^3/uL 10^3/uL (1.70-6.50) Absolute Lymphs (auto) 5.49 10^3/uL H 10^3/uL (1.00-3.00) Absolute Monos (auto) 0.67 10^3/uL 10^3/uL (0.30-0.80) Absolute Eos (auto) 0.13 10^3/uL 10^3/uL (0.03-0.40) Absolute Basos (auto) 0.07 10^3/uL 10^3/uL (0.02-0.10) Absolute Nucleated RBC 0.02 10^3/uL H 10^3/uL (0-0.01) Immature Gran % 2.6 % H % (0.0-1.1) Immature Gran # 0.28 10^3/uL H 10^3/uL (0.00-0.10) PT INR APTT POC Sodium Sodium POC Potassium Potassium POC Chloride Chloride Carbon Dioxide Anion Gap POC BUN BUN Creatinine POC Creatinine Estimated GFR Glucose POC Glucose Calcium Troponin I Medications Given: Discontinued Medications Alteplase, Recombinant (Activase) 63.666 mg 0.81 mg/kg (63.666 mg) IV ONCE ONE PRN Reason: Protocol Stop: 03/28/17 20:24 Last Admin: 03/28/17 20:15 Dose: 63.666 mg Alteplase, Recombinant (Activase) 7.074 mg 0.09 mg/kg (7.074 mg) IV ONCE ONE PRN Reason: Protocol Stop: 03/28/17 20:24 Last Admin: 03/28/17 20:15 Dose: 7.074 mg Point of Care Test Results: 03/28/17 19:28 POC Sodium 144 POC Potassium 3.6 POC Chloride 105 POC BUN 26 H POC Creatinine 1.3 POC Glucose 149 H Departure - Departure Disposition: [facility] Acute Clinical Impression: CVA (cerebral vascular accident) Qualifiers: CVA mechanism: unspecified Qualified Code(s): I63.9 - Cerebral infarction, unspecified Condition: Fair Referrals: DEMAR ESPINOZA MD [Other] - As per Instructions
[2017-03-28] MEDS ORDERED: LABETALOL HCL 5 MG/ML 20 ML MDV IVP PRN (21:07)
[2017-03-28] MEDS ORDERED: ONDANSETRON 4 MG/2 ML VIAL IVP PRN (21:11)
[2017-03-28] MEDS ORDERED: ACETAMINOPHEN 325 MG TAB PO PRN (21:11)
[2017-03-28] MEDS ORDERED: ONDANSETRON DISINTEGRATING 4 MG TAB PO PRN (21:11)
[2017-03-28] MEDS ORDERED: NS 1,000 ML IV SCH (21:15)
--- NOTE | 2017-03-28 21:37 | PDCONSULT ---
Door Clamp Operator Note: [facility] Telehealth Note Demographics Consult Type Acute Stroke First Name Micheal Last Name Aurora Date of 1945 Age: 71 Gender Male Referring Provider Dr Mccormick Time of initial page ([place] ): 03/28/2017 19:42 Time of return call (): 03/28/2017 19:42 Time Ready to Initiate Telemed Consult (): 03/28/2017 19:43 HPI Additional History (Free Text): 71 year old man with history of Prior stroke. He was evaluated last month with CT angio and MRI showing no acute or Subacute infarct. He has a chronic infarction of the right occipital and parietal area. Today he was known to be well at 6:50 p.m. at dinner . He resides in the facility. He was later found on the floor of his residence he is brought in for evaluation any clearly is having language difficulty. Upon further assessment he is moving everything symmetrically and he's had a CT scan that shows no acute abnormality Only The Chronic changes from prior infarction. Time last seen normal (): < 3 hrs PM-- Past Medical History: Cerebrovascular Accident, Dementia, Hyperlipidemia, Hypertension Social History: non-smoker, lives in custodial Medications: on antihypertensive, on lipid lowering agent, Plavix Exam Vitals: vital signs reviewed SBP: 134 DBP: 80 Mental Status: awake, Slow to respond, Language: not following commands well, repeating months of year or counting numbers in sequence, Unable to answer questions. Cranial Nerves no facial droop Motor: Appears to move all limbs with symmetric power, unable to aparticipate in formal testing. Sensory: normal sensation Cerebellar: normal cerebellar NIHSS Time ([place] ): 03/28/2017 19:53 LOC 1a: 1 = Not alert; but arousable by minor stimulation to obey, answer, or respond LOC 1b: 2 = Answers neither questions correctly LOC Commands: 1 = Performs one task correctly Best Gaze: 0 = Normal Visual: 0 = No visual loss Facial Palsy 0 = Normal symmetrical movements Motor Arm L: 0 = No drift; limb holds 90 (or 45) degrees for full 10 seconds Motor Arm R: 0 = No drift; limb holds 90 (or 45) degrees for full 10 seconds Motor Leg L: 0 = No drift; leg holds 30-degree position for full 5 seconds Motor Leg R: 0 = No drift; leg holds 30-degree position for full 5 seconds Limb Ataxia 0 = Absent Sensory: 0 = Normal; no sensory loss Best Language: 2 = Severe aphasia; all communication is through fragmentary expression Dysarthria: 1 = Ngmo-rg-gvjkhtrz dysarthria; patient slurs at least some words Extinction + Inattention: 0 = No abnormality NIHSS: [address]: no bleed CTA Head no large vessel occlusion CTA Neck patent vessels Assessment: Acute Ischemic Stroke, Aphasia, acute onset within 3 hour window. No prior history of seizure to consider this as alternate diagnosis to stroke. His prior infarct would not explain symptoms of aphasia. Plan/ please take as written orders Lytic/Intervention: IV tPA Time IV tPA Recommended (): 03/28/2017 20:02 Target Blood Pressure: SBP < 180 and DBP < 100 Labs CBC, Comprehensive metabolic panel, HgbA1c, Lipid Panel Imaging MRI brain without Diagnostic test echocardiogram with bubble Therapy/Eval NPO until cleared by swallow evaluation VTE Prophylaxis SCD tPA Administration Recommendations: I have reviewed the risks/benefits of tPA with family &/or patient. They understand that there is a potential of life threatening hemorrhagic complication from tPA, but feel that benefits outweigh risks and want to proceed with administration of tPA, BP goal< 180/100 for 24hrs post tPA administration, Use Labetolol 10-20mg IV prn or Nicardipine gtt to maintain BP parameters, No antiplatelets or anticoagulants for next 24 hrs unless indicated for emergent IA procedure or other life threatening situation, ICU admission, Call back if there is any decline in neurological condition Other LDL goal less than 70, telemetry monitoring, I have discussed my recommendations with the referring provider Additional Recommendations: If large vessel occlusion on CTA consider thrombectomy and transfer, based on clinical syndrome large vessel is not as likely. Disposition transfer to ICU
[2017-03-28 21:41] LABS: ETHANOL SERUM < 10 mg/dL (0-10)
[2017-03-28] MEDS ORDERED: HYDROCORTISONE 1% CREAM TP PRN (22:47)
[2017-03-28] MEDS ORDERED: DOCUSATE SODIUM 100 MG CAP PO PRN (22:47)
--- NOTE | 2017-03-28 22:57 | PDGENHP ---
History and Physical - Chief Complaint Acute dysarthria - History of Present Illness PCP: Dr. Jang Primary neurologist: Dr. Desai HPI: 71-year-old male presents with acute dysarthria and associated confusion with onset of symptoms between 6:50 p.m. and 7:15 p.m. on the date of arrival. Patient was last seen at his baseline at 6:50 p.m. and then he was found down by [facility] staff member at 7:15 p.m. when attempted to arouse him, he was notably dysarthric and confused. He was brought to the [facility] emergency department as a stroke alert, was seen by [facility], and tPA was initiated. After the tPA had completed, it was noted on CT angiogram that the patient did not have any evidence of large vessel occlusion and the decision was made to admit him to our intensive care unit. After the tPA had completed, he was noted to be much less dysarthric and only had some residual word-finding difficulty as well as what appeared to be some receptive aphasia. The patient had otherwise reportedly been feeling well prior to his onset of symptoms, but the patient cannot clearly recall the events immediately transpiring before the event. Appears to have some retrograde amnesia extending for several hours prior to the event. History Information - Allergies/Home Medication List Allergies/Adverse Reactions: perfume Allergy (Verified 03/28/17 19:33) detergents Allergy (Uncoded 03/28/17 19:33) HAY FEVER Allergy (Uncoded 02/21/17 21:37) Home Medications: Acetaminophen [Tylenol 325mg (*)] 325 - 650 mg PO Q6HRS PRN 02/22/17 [Last Taken Unknown] Atorvastatin Calcium [Lipitor 20 mg (*)] 60 mg PO HS 02/22/17 [Last Taken ] Clopidogrel Bisulfate [Plavix (*)] 75 mg PO DAILY 02/22/17 [Last Taken 03/28/17] Cyanocobalamin [Vitamin B12 (*)] 1,000 mcg PO DAILY 02/22/17 [Last Taken ] Docusate Sodium [Colace 100 MG (*)] 100 mg PO DAILY PRN 02/22/17 [Last Taken Unknown] Donepezil HCl [Aricept 5 MG (*)] 2.5 mg PO DAILY 02/22/17 [Last Taken 03/28/17] Finasteride [Proscar 5 MG (*)] 5 mg PO HS 02/22/17 [Last Taken 03/28/17] Hydrocortisone 1% [Hydrocortisone 1% cream (*)] 1 alexys TP BID PRN 02/22/17 [Last Taken Unknown] Lisinopril [Zestril 20 mg (*)] 20 mg PO HS 02/22/17 [Last Taken 03/28/17] Metoprolol Tartrate [Lopressor 25 mg (*)] 12.5 mg PO BID 02/22/17 [Last Taken ] Tamsulosin HCl [Flomax 0.4 MG (*)] 0.4 mg PO HS 02/22/17 [Last Taken 03/28/17] amLODIPine BESYLATE [Norvasc 5 mg (*)] 5 mg PO DAILY 02/22/17 [Last Taken ] Cholecalciferol Vit D3 [Vitamin D3 2000 units tab (OTC)] 2,000 units PO DAILY [Last Taken 03/28/17] I have personally reviewed and updated: family history, medical history, social history, surgical history - Past Medical History hypertension, hyperlipidemia Additional medical history: 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 TIA 2015. Acute confusional episode February of 2017. BPH - Surgical History Reports: no pertinent surgical hx - Family History Additional family history: Both parents are - Social History Smoking Status: Never smoked Alcohol Use: None Drug Use: None Additional social history: Lives at [facility]. Wzhbff-[id number] is DPOA. Review of Systems ROS: 10pt was reviewed & negative except for what was stated in HPI & below Neurological: Reports: other ( dysarthria, confusion) Physical Exam Temp Pulse Resp BP Pulse Ox 37.4 C 104 H 17 137/84 H 94 03/28/17 22:15 03/28/17 22:15 03/28/17 22:15 03/28/17 22:15 03/28/17 22:15 Constitutional: no apparent distress, appears nourished, not in pain Eyes: PERRL, No EOMI ( gaze palsy to the left bilaterally) Ears, Nose, Mouth, Throat: moist mucous membranes, hearing normal, ears appear normal, no oral mucosal ulcers Cardiovascular: regular rate and rhythym, no murmur, rub, or gallop, No edema Respiratory: no respiratory distress, no rales or rhonchi, clear to auscultation Gastrointestinal: normoactive bowel sounds, soft, non-tender abdomen, no palpable masses Neurologic: AAOx3, sensation intact bilaterally, CN II-XII Intact ( with the exception of left tyshawn anopsia and left gaze palsy beyond the midline), other ( naming objects 1/3), No weakness ( motor strength 5/5 bilateral upper and lower extremities) Psychiatric: not anxious, not encephalopathic, flat affect, other ( concentration is 5/7), No agitated Lab Data & Imaging Review 03/28/17 18:35 03/28/17 18:35 WBC 10.78 10^3/uL (3.80-9.50) H 03/28/17 18:35 RBC 5.59 10^6/uL (4.40-6.38) 03/28/17 18:35 Hgb 17.6 g/dL (13.7-17.5) H 03/28/17 18:35 POC Hgb 17.3 gm/dL (14.5-17.3) 03/28/17 19:28 Hct 52.9 % (40.0-51.0) H 03/28/17 18:35 POC Hct 51 % (42.8-50.6) H 03/28/17 19:28 MCV 94.6 fL (81.5-99.8) 03/28/17 18:35 MCH 31.5 pg (27.9-34.1) 03/28/17 18:35 MCHC 33.3 g/dL (32.4-36.7) 03/28/17 18:35 RDW 13.1 % (11.5-15.2) 03/28/17 18:35 Plt Count 195 10^3/uL (150-400) 03/28/17 18:35 MPV 10.1 fL (8.7-11.7) 03/28/17 18:35 Neut % (Auto) 38.5 % (39.3-74.2) L 03/28/17 18:35 Lymph % (Auto) 50.9 % (15.0-45.0) H 03/28/17 18:35 [place] % (Auto) 6.2 % (4.5-13.0) 03/28/17 18:35 Eos % (Auto) 1.2 % (0.6-7.6) 03/28/17 18:35 Baso % (Auto) 0.6 % (0.3-1.7) 03/28/17 18:35 Nucleat RBC Rel Count 0.2 % (0.0-0.2) 03/28/17 18:35 Absolute Neuts (auto) 4.14 10^3/uL (1.70-6.50) 03/28/17 18:35 Absolute Lymphs (auto) 5.49 10^3/uL (1.00-3.00) H 03/28/17 18:35 Absolute Monos (auto) 0.67 10^3/uL (0.30-0.80) 03/28/17 18:35 Absolute Eos (auto) 0.13 10^3/uL (0.03-0.40) 03/28/17 18:35 Absolute Basos (auto) 0.07 10^3/uL (0.02-0.10) 03/28/17 18:35 Absolute Nucleated RBC 0.02 10^3/uL (0-0.01) H 03/28/17 18:35 Immature Gran % 2.6 % (0.0-1.1) H 03/28/17 18:35 Immature Gran # 0.28 10^3/uL (0.00-0.10) H 03/28/17 18:35 PT 14.0 SEC (12.0-15.0) 03/28/17 18:35 INR 1.09 (0.83-1.16) 03/28/17 18:35 APTT 31.8 SEC (23.0-38.0) 03/28/17 18:35 VBG Lactic Acid 3.1 mmol/L (0.7-2.1) H 03/28/17 21:13 POC Sodium 144 mEq/L (134-144) 03/28/17 19:28 Sodium 142 mEq/L (134-144) 03/28/17 18:35 POC Potassium 3.6 mEq/L (3.3-5.0) 03/28/17 19:28 Potassium 4.2 mEq/L (3.5-5.2) 03/28/17 18:35 POC Chloride 105 mEq/L (96-108) 03/28/17 19:28 Chloride 103 mEq/L (97-110) 03/28/17 18:35 Carbon Dioxide 15 mEq/l (22-31) L 03/28/17 18:35 Anion Gap 24 mEq/L (8-16) H 03/28/17 18:35 POC BUN 26 mg/dL (7-23) H 03/28/17 19:28 BUN 22 mg/dL (7-23) 03/28/17 18:35 Creatinine 1.3 mg/dL (0.7-1.3) 03/28/17 18:35 POC Creatinine 1.3 mg/dL (0.8-1.5) 03/28/17 19:28 Estimated GFR 54 03/28/17 18:35 Glucose 149 mg/dL (70-100) H 03/28/17 18:35 POC Glucose 149 mg/dL (70-100) H 03/28/17 19:28 Calcium 9.7 mg/dL (8.5-10.4) 03/28/17 18:35 Troponin I < 0.012 ng/mL (0-0.034) 03/28/17 18:35 Ethyl Alcohol < 10 mg/dL (0-10) 03/28/17 21:33 Visualized and Interpreted Chest x-ray results: Yes Chest X-Ray results: no infiltrate Visualized and Interpreted EKG results: Yes EKG Interpretation: Positive for: other ( normal sinus rhythm, Q-wave in lead 3 , AVF, tachycardic) Assessment & Plan Assessment: 71-year-old male presents with acute dysarthria, confusion, encephalopathy Plan: 1. Acute encephalopathy. New problem this provider, further workup indicated. Evidenced by global brain dysfunction characterized as being found down unresponsive with dysarthria and confusion, which is an acute change from his baseline, potentially secondary to metabolic effects of acute acidosis versus seizure versus CVA - treat metabolic acidosis -monitor mental status closely as well as neurologic exam - laboratory values are suspicious for unwitnessed seizure with low serum bicarb , elevated white blood cell count, anion gap -get serum lactic acid level determine whether it is also consistent with possible seizure -get EEG in a.m. -hold on antiepileptic medications at this time and placed on seizure precautions -currently not localizing any infectious symptoms, monitor closely -send tox screen and alcohol level 2. Possible CVA. Review of outside records from 02/22/[address] Mcneill and Dr. Lynn felt like his most recent presentation for dysarthria secondary to acute confusional episode and not an overt TIA or CVA - discussed with Dr. Mccormick, he has evaluated the patient with [facility], tPA was recommended - tPA order set placed -follow-up noncontrast head CT - maintain systolic blood pressure with parameters, labetalol as needed, monitor in ICU -neurology consultation place -swallow eval 3. Chronic kidney disease stage 3. baseline creatinine is 1.1-1.4, currently near baseline, continue to monitor 4. Metabolic acidosis. Anion gap, suspect lactic acid potentially produced from seizure and potentially ongoing hypovolemia -continue normal saline - get lactic acid level, monitor serum bicarb 5. Atelectasis. Acute, present on chest x-ray, incentive spirometer, no evidence of pneumonia Diet. Cardiac if passes swallow eval Prophylaxis. Moderate risk patient, SCDs Code. Full per patient, his [id number]'s is MPOA Disposition. Anticipated discharge is uncertain this time, anticipated length stay is greater than 48 hours warranting inpatient admission status for acute encephalopathy and possible CVA requiring tPA and ICU level monitoring for. 40 minutes of critical care time spent at bedside with patient, addressing the issues as outlined above, coordinating his care, patient remains high risk of morbidity and/or mortality and is critically ill.
[2017-03-28] MEDS: ATORVASTATIN CALCIUM 20 MG TAB PO SCH (23:21)
[2017-03-28] MEDS: TAMSULOSIN HCL 0.4 MG CAP PO SCH (23:21)
[2017-03-28] MEDS: FINASTERIDE 5 MG TAB PO SCH (23:22)
[2017-03-28] MEDS: LISINOPRIL 20 MG TAB PO SCH (23:22)
[2017-03-28] MEDS: METOPROLOL TARTRATE 25 MG TAB PO SCH (23:23)
[2017-03-28 23:58] LABS: COLOR YELLOW; LEUKOCYTE ESTERASE,URINE NEGATIVE (NEGATIVE); NITRITE,URINE NEGATIVE (NEGATIVE)
[2017-03-29 04:21] LABS: % IMMATURE GRANULYOCYTES 0.4 % (0.0-1.1); ABSOLUTE IMMATURE GRANULOCYTES 0.04 10^3/uL (0.00-0.10); ADD DIFF? NO; ADD MORPH? NO; ADD SCAN? NO; ATYPICAL LYMPHOCYTE FLAG 10 (0-99); FRAGMENT RBC FLAG 0 (0-99); HEMATOCRIT 42.4 % (40.0-51.0); HEMOGLOBIN 14.4 g/dL (13.7-17.5); LEFT SHIFT FLG 0 (0-99); LIPEMIA HEMOLYSIS FLAG 90 (0-99); MEAN CELL HEMOGLOBIN 30.7 pg (27.9-34.1); MEAN CELL VOLUME 90.4 fL (81.5-99.8); MEAN PLATELET VOLUME 9.7 fL (8.7-11.7); PLATELET CLUMPS FLAG 0 (0-99); PLATELET COUNT 134 10^3/uL (150-400); RED BLOOD CELL COUNT 4.69 10^6/uL (4.40-6.38); RED CELL DISTRIBUTION WIDTH 13.2 % (11.5-15.2)
[2017-03-29 04:38] LABS: ALANINE AMINOTRANSFERASE 56 IU/L (21-72); ALBUMIN 3.4 g/dL (3.5-5.0); ALKALINE PHOSPHATASE 75 IU/L (38-126); ANION GAP 9 mEq/L (8-16); ASPARTATE AMINOTRANSFERASE 36 IU/L (17-59); CALCIUM 8.7 mg/dL (8.5-10.4); CARBON DIOXIDE 19 mEq/l (22-31); CHLORIDE 109 mEq/L (97-110); GLOMERULAR FILTRATION RATE > 60; GLUCOSE 103 mg/dL (70-100); POTASSIUM 3.8 mEq/L (3.5-5.2); SODIUM 137 mEq/L (134-144); TOTAL PROTEIN 5.8 g/dL (6.3-8.2)
[2017-03-29] MEDS: CHOLECALCIFEROL VIT D3 2,000 UNITS TAB/CAP PO SCH (08:27)
[2017-03-29] MEDS: METOPROLOL TARTRATE 25 MG TAB PO SCH ×2 (08:27→20:45)
[2017-03-29] MEDS: CYANO/VITAMIN B12 1000 MCG TAB PO SCH (08:27)
[2017-03-29] MEDS: amLODIPine BESYLATE 5 MG TAB PO SCH (08:27)
[2017-03-29] MEDS: DONEPEZIL HCL 5 MG TAB PO SCH (08:27)
--- NOTE | 2017-03-29 11:30 | HOSPPROG ---
Hospitalist Progress Note Assessment/Plan: 71 yo with know prior CVA, presented With altered mental status and abnormal CT scan showing only a prior CVA. Post consultation with [facility] the patient was given tPA and had an improvement in cognitive function. Patient is new to me today. - Acute seizure disorder: Neurology consultation with Dr. Garret Gray indicates that the presentation was probably an acute seizure and not an acute CVA. There is trauma to the tongue on both sides. The patient is improving in cognitive function. Garret, the snvcje-[id number] reports that he is at approximately 90% of his baseline. He has multiple cognitive impairment secondary to the prior CVA but does not have a diagnosis of a dementia. Thus his cognitive decline at this admission was the result of a seizure and a postictal state and and an exacerbation of an underlying cognitive impairment. - Metabolic acidosis, POA, now improving - multiple PVCs seen during the night on telemetry and now only isolated unifocal PVCs. Patient is stable and a sinus rhythm. PVCs were likely secondary to his metabolic acidosis which is now improving. - CKD III: probably at baseline now. - Chronic medical: Hypertension which is now normotensive. - Disposition: Transfer to [facility] without telemetry as he has no history of cardiac rhythm disturbance. PT and OT and ultimately probably a transfer back to [facility] living. Seizure prophylaxis per Neurology but will start Keppra 500 mg twice daily. Subjective: Alert oriented x3 but slow in thinking and slightly dysarthric. Nancy is [id number]-fs-lsq reports he is at 90% of baseline no complaints of chest pain shortness of breath or headache. Objective: Vital Signs Temp Pulse Resp BP Pulse Ox 36.8 C 73 20 112/67 93 03/29/17 07:15 03/29/17 11:00 03/29/17 11:00 03/29/17 10:15 03/29/17 11:00 Laboratory Results 03/29/17 04:05 03/29/17 04:05 03/28/17 03/29/17 03/30/17 05:59 05:59 05:59 Intake Total 1213.6 560 Output Total 500 325 Balance 713.6 235 PT 14.0 SEC (12.0-15.0) 03/28/17 18:35 INR 1.09 (0.83-1.16) 03/28/17 18:35 - Time Spent With Patient Time Spent with Patient: greater than 35 minutes Time Spent with Patient: Greater than 35 minutes spent on this patients care, greater than 50% of time spent counseling, educating, and coordinating care regarding the above mentioned plan. - Pending Discharge Pending Discharge Within 24 Hours: No Pending Discharge Within 48 Hours: No - Physical Exam Constitutional: chronically ill appearing Eyes: PERRL Ears, Nose, Mouth, Throat: moist mucous membranes Cardiovascular: regular rate and rhythym, other ( Unifocal PVCs noted on the monitor. There were PVCs in bigeminy trigeminy without runs and without hypotension through the night.) Respiratory: no respiratory distress, no rales or rhonchi Gastrointestinal: normoactive bowel sounds, soft, non-tender abdomen Genitourinary: no bladder fullness Neurologic: AAOx3, facial droop ( On the left side there is a facial droop gross motor function is 5/5 in all major muscle groups.) Psychiatric: interacting appropriately ICD10 Worksheet Patient Problems: Problems Problem Status Onset Occipital stroke Acute HTN (hypertension) Acute Hyperlipidemia LDL goal < 100 Acute TIA (transient ischemic attack) Acute Word finding difficulty Acute CVA (cerebral vascular accident) Acute
--- NOTE | 2017-03-29 11:42 | GCON ---
[f rep st] CONSULTATION REASON FOR ADMISSION: Possible stroke. HISTORY OF PRESENT ILLNESS: The patient is a 71-year-old white male with a past medical history including a stroke in 2013 with significant left-sided hemiparesis and left visual field defect. He has also had TIAs. He was found down at [facility] around 7:15 in the evening. He was dysarthric and confused. He was brought via EMS to [facility], and was seen by [facility]. The tPA was begun. His symptoms have improved since then, and he is fairly close to his normal state of health. He has been seen by Neurology here, who have considered the fact that possibly this may be seizure activity and not a stroke. Currently, patient is resting comfortably. He complains of some low back pain, but denies any shortness of breath, cough or productive sputum. There is no chest pain, pleuritic-type chest pain or angina equivalent. No fever, no night sweats. PAST MEDICAL HISTORY: Again, significant for stroke and TIAs. PAST SURGICAL HISTORY: None. ALLERGIES: No known allergies to medications. SOCIAL HISTORY: Lifelong never smoker. No significant alcohol use. He resides at [facility]. His dknvlq-rb-otf is his POA. MEDICATIONS: At home include Tylenol, Lipitor, Plavix, vitamin B12, Colace, Aricept, Proscar, Zestril, Lopressor, Flomax, Norvasc, and cholecalciferol. PHYSICAL EXAM: VITAL SIGNS: Blood pressure is 112/67, pulse 76, respirations 20, afebrile, oxygen saturation 92% on room air. GENERAL: He is a well- developed, well-nourished, 71-year-old white male who is resting comfortably in no acute distress. HEENT: Eyes MIKE, EOMI. Throat shows no erythema or tonsillar hypertrophy. NECK: Supple. There is no cervical adenopathy. HEART : Regular rate and rhythm with a 2/6 systolic murmur at the left sternal border without radiation. LUNGS: Diminished breath sounds, but no wheeze. ABDOMEN: Soft, nontender. Bowel sounds are present in all 4 quadrants. EXTREMITIES: No clubbing, cyanosis, or edema. LABORATORIES: White count is 9.6, hemoglobin 14, hematocrit 42, platelet count is 134, sodium 137, potassium 3.8, chloride 109, CO2 is 19. BUN 21, creatinine 1.0. Glucose is 103. Urinalysis is negative. Urine tox screen is negative. IMPRESSION: 1. Possible stroke, status post tPA. 2. History of old stroke. 3. Chronic renal insufficiency by history. 4. Minimal atelectasis. 5. Possible seizure. 6. Acute encephalopathy, resolved. RECOMMENDATIONS: 1. Adequate pain control. 2. DVT and PE prophylaxis. 3. Stress ulcer prophylaxis. 4. Restart his majority of his home medications. 5. Follow Neurology recommendations. Thank you very much. /[id number]/MODL [email or web address]
[2017-03-29] MEDS: levETIRAcetam 500 MG TAB PO SCH ×2 (13:07→20:46)
--- NOTE | 2017-03-29 14:48 | GCON ---
[f rep st] CONSULTATION NEUROLOGIC CONSULTATION REFERRING PHYSICIAN: Marco Arthur MD HISTORY OF PRESENT ILLNESS: History is obtained from the patient, as well as nurse and his sister-i n-law, and review of the emergency room records and history and physical. The patient is a 71-year-old gentleman, whom I am asked to see in neurologic consultation regarding possible stroke which occurred in the setting of nursing facility, where he had been seen at his carrier clinic around 6:50 p.m. at [facility], and then approximately 7:15 p.m. he was hard to arouse and se emed confused and dysarthric, and was brought to the emergency room under stroke alert status. The emergency room physician evaluated the patient, Dr. Dany Mccormick, and he documented that the patient had the altered speech and a clear change from his baseline where he normally speaks in sentences w ith some mild expressive aphasia, and has a known history of residual stroke from 2013 with left-martha ed weakness. When we examined the patient, he was awake and alert, and did not have focal motor wea kness. There was a challenge with assessing sensory testing, but he was somewhat disoriented. In a ny case, [facility] was involved and recommended that the patient get tPA. CT angiogram of head and neck did not show any large vessel stenoses. He got tPA, was brought from the emergenc y department to the ICU, and has been stable since his admission late last evening. I spoke to the patient this morning. He said he had bitten his tongue. He says he has never had a known seizure. He thinks he is much better and his ddlisi-bj-jgi agrees that he is very close to his baseline, whic h is the mild expressive language problems, some left facial droop, and some left upper extremity an d left lower extremity weakness. He has had stroke as well as TIA. The patient had admission here in February for a confusional state. FAMILY HISTORY: Noncontributory. SOCIAL HISTORY: No smoking or alcohol. PHYSICAL EXAMINATION: VITAL SIGNS: Blood pressure is 125/80, pulse of 73, respirations 20. GENERA L: He is well developed, no acute distress. NECK: Supple, with no bruits or masses. CARDIAC: Re gular rate and rhythm. No murmur. NEUROLOGIC: The NIH stroke scale is 4. Pupils 3 mm and reactiv e. Extraocular movements intact. He has some mild expressive language difficulty. He had a little bit of troublesome calculations. He was able to spell. There is little facial asymmetry with perh aps a little facial weakness on the left. There is very mild drift in the left arm and leg. Otherw ise, fairly well-preserved strength. Sensation is slightly different with a little decreased sensat ion in the left foot relative to the right. Reflexes more brisk on the left than the right. IMAGING STUDIES: His head CT did not show any evidence of an acute stroke. There is an old right o ccipital and posterior medial right temporal lobe infarct with encephalomalacia, unchanged compared to February 2017. CT angiogram negative. IMPRESSION: I think the patient probably actually had an unwitnessed generalized tonic-clonic seizu re with postictal state, causing some exacerbation of old deficits. I forgot to mention above that when I did look in his mouth, his tongue was strongly bruised on both sides, consistent with probabl y a tongue biting episode, which would not be expected with a seizure. He certainly could have had an ischemic event as well, but the evolution is much more consistent with a seizure followed by post ictal state, and he has now been started on Keppra and I agree with that approach. I would keep him on the 500 mg b.i.d. He should get a CT scan tomorrow for followup prior to our plans for determin ing long-term treatment, but likely Plavix for secondary stroke prophylaxis, and it is possible he w ill be able to be discharged as soon as tomorrow, but needs the physical, occupational, speech thera py consults. Total unit time of 60 minutes. /[id number]/MODL
[2017-03-29] MEDS: FINASTERIDE 5 MG TAB PO SCH (20:45)
[2017-03-29] MEDS: LISINOPRIL 20 MG TAB PO SCH (20:45)
[2017-03-29] MEDS: TAMSULOSIN HCL 0.4 MG CAP PO SCH (20:45)
[2017-03-29] MEDS: ATORVASTATIN CALCIUM 20 MG TAB PO SCH (20:46)
[2017-03-30 05:21] LABS: % IMMATURE GRANULYOCYTES 0.3 % (0.0-1.1); ABSOLUTE IMMATURE GRANULOCYTES 0.03 10^3/uL (0.00-0.10); ADD DIFF? NO; ADD MORPH? NO; ADD SCAN? NO; ATYPICAL LYMPHOCYTE FLAG 0 (0-99); FRAGMENT RBC FLAG 0 (0-99); HEMATOCRIT 42.9 % (40.0-51.0); HEMOGLOBIN 14.7 g/dL (13.7-17.5); LEFT SHIFT FLG 10 (0-99); LIPEMIA HEMOLYSIS FLAG 90 (0-99); MEAN CELL HEMOGLOBIN 31.5 pg (27.9-34.1); MEAN CELL HEMOGLOBIN CONCENTR. 34.3 g/dL (32.4-36.7); MEAN CELL VOLUME 91.9 fL (81.5-99.8); MEAN PLATELET VOLUME 9.8 fL (8.7-11.7); PLATELET CLUMPS FLAG 0 (0-99); PLATELET COUNT 118 10^3/uL (150-400); RED BLOOD CELL COUNT 4.67 10^6/uL (4.40-6.38); RED CELL DISTRIBUTION WIDTH 13.2 % (11.5-15.2)
[2017-03-30 05:32] LABS: ANION GAP 5 mEq/L (8-16); CALCIUM 6.4 mg/dL (8.5-10.4); CARBON DIOXIDE 19 mEq/l (22-31); CHLORIDE 118 mEq/L (97-110); CREATININE 0.7 mg/dL (0.7-1.3); GLOMERULAR FILTRATION RATE > 60; GLUCOSE 73 mg/dL (70-100); SODIUM 142 mEq/L (134-144)
[2017-03-30 05:47] LABS: POTASSIUM 2.6 mEq/L (3.5-5.2)
[2017-03-30] MEDS ORDERED: PROTOCOL POTASSIUM 1 DOSE MISC PRN (05:57)
[2017-03-30] MEDS ORDERED: POTASSIUM CL 10 MEQ TAB PO ONE (06:01)
--- NOTE | 2017-03-30 09:14 | PDINTPN ---
Commutator Operator Progress Note Assessment/Plan: Assessment/Plan: * Possible stroke-status post tPA * Possible seizure-continuing Keppra -EEG pending * Intermittent bigeminy-nonsustained. Perhaps secondary to hypokalemia * History of old stroke * Chronic renal insufficiency * Mild atelectasis * Hypokalemia-on replacement * Disposition-okay for med surg Subjective: Awake and alert resting comfortably in bed. Denies any pain or headache. He has a good appetite Objective: Vital Signs Temp Pulse Resp BP Pulse Ox 36.9 C 65 18 148/89 H 93 03/29/17 20:15 03/30/17 06:00 03/30/17 06:00 03/30/17 06:00 03/30/17 06:00 Laboratory Results 03/30/17 05:00 03/30/17 05:00 03/29/17 03/30/17 03/31/17 05:59 05:59 05:59 Intake Total 1213.6 2177 Output Total 500 1625 Balance 713.6 552 PT 14.0 SEC (12.0-15.0) 03/28/17 18:35 INR 1.09 (0.83-1.16) 03/28/17 18:35 Physical Exam - Physical Exam General Appearance: alert, no apparent distress EENT: PERRL/EOMI, normal ENT inspection, pharynx normal, TMs normal Neck: non-tender, full range of motion, supple, normal inspection Respiratory: chest non-tender, lungs clear, normal breath sounds Cardiac/Chest: normal peripheral pulses, regular rate, rhythm Abdomen: normal bowel sounds, non-tender, soft Male Genitalia: deferred Rectal: deferred Skin: normal color, warm/dry Extremities: normal range of motion, non-tender, normal inspection, normal capillary refill Neuro/Psych: alert ICD10 Worksheet Patient Problems: Problems Problem Status Onset CVA (cerebral vascular accident) Acute HTN (hypertension) Acute Hyperlipidemia LDL goal < 100 Acute Occipital stroke Acute TIA (transient ischemic attack) Acute Word finding difficulty Acute
[2017-03-30] MEDS: CYANO/VITAMIN B12 1000 MCG TAB PO SCH (09:23)
[2017-03-30] MEDS: CHOLECALCIFEROL VIT D3 2,000 UNITS TAB/CAP PO SCH (09:24)
[2017-03-30] MEDS: DONEPEZIL HCL 5 MG TAB PO SCH (09:24)
[2017-03-30] MEDS: levETIRAcetam 500 MG TAB PO SCH ×2 (09:24→21:10)
[2017-03-30] MEDS: amLODIPine BESYLATE 5 MG TAB PO SCH (09:25)
[2017-03-30] MEDS: METOPROLOL TARTRATE 25 MG TAB PO SCH ×2 (09:25→21:12)
--- NOTE | 2017-03-30 09:47 | NEUROPROG ---
Assessment: The patient is stable from a neurologic perspective with suspected generalized seizure causing this new presentation on top of his old stroke. His back pain is likely related to paraspinal muscle strain. He may now switched to aspirin. He should continue on Keppra and may follow up with me as an outpatient with [facility]. Therapy today we will determine whether he is ready to discharge and what capacity assistance he will require. Total unit time of 25 minutes. Subjective: The patient says that he has some back pain still but is otherwise doing better with almost returned to baseline speech pattern. Objective: Vital Signs Temp Pulse Resp BP Pulse Ox 36.9 C 78 18 130/77 H 93 03/29/17 20:15 03/30/17 09:25 03/30/17 06:00 03/30/17 09:25 03/30/17 06:00 Laboratory Results 03/30/17 05:00 03/30/17 05:00 03/29/17 03/30/17 03/31/17 05:59 05:59 05:59 Intake Total 1213.6 2177 Output Total 500 1625 Balance 713.6 552 PT 14.0 SEC (12.0-15.0) 03/28/17 18:35 INR 1.09 (0.83-1.16) 03/28/17 18:35 He is alert and attentive with some mild expressive language difficulties. His back pain is in the midthoracic region. There is not percussion tenderness but some tenderness to palpation of some of the paraspinal muscles without any evident lesions externally. The repeat head CT today does not appear to show any new changes. Allergies/Adverse Reactions: perfume Allergy (Verified 03/28/17 19:33) detergents Allergy (Uncoded 03/28/17 19:33) HAY FEVER Allergy (Uncoded 02/21/17 21:37)
--- NOTE | 2017-03-30 11:16 | HOSPPROG ---
Hospitalist Progress Note Assessment/Plan: 71 yo with know prior CVA, presented With altered mental status and abnormal CT scan showing only a prior CVA. Post consultation with [facility] the patient was given tPA and had an improvement in cognitive function. Today he is improving. There has been no seizures and his slight facial droop on the left side is less today And per PT and OT his function is improving. - Sepsis previously noted has been ruled out. - Acute seizure disorder: Neurology consultation with Dr. Garret Gray indicates that the presentation was probably an acute seizure and not an acute CVA. There is trauma to the tongue on both sides. The patient is improving in cognitive function. Garret, the [id number] reports that he is at approximately 90% of his baseline. He has multiple cognitive impairment secondary to the prior CVA but does not have a diagnosis of a dementia. Thus his cognitive decline at this admission was the result of a seizure and a postictal state and and an exacerbation of an underlying cognitive impairment. Plan: Continue the Keppra and restart aspirin therapy for the prior CVA. - Hypokalemia which will be repleted on protocol. This is a new problem today. - Metabolic acidosis, POA, now improving - multiple PVCs seen during the night on telemetry and now only isolated unifocal PVCs. Patient is stable and a sinus rhythm. PVCs continue without runs. - CKD III: probably at baseline now. - Chronic medical: Hypertension which is now normotensive On his home prescriptions of Norvasc lisinopril and metoprolol. - Disposition: Transfer to [facility] without telemetry as he has no history of cardiac rhythm disturbance. PT and OT and ultimately probably a transfer back to [facility] living. Seizure prophylaxis per Neurology but will start Keppra 500 mg twice daily. Plan: - Continue Keppra and restart aspirin therapy for his prior CVA per Neurology. - Disposition will be to power back or inpatient rehab. - Watch BP closely and augment medications as needed. - Patient is ready for discharge to power back or inpatient rehab. Subjective: Feeling improved in very close to his baseline. Denies chest pain shortness of breath. His appetite And cognition are improving per his sister- in-law Nancy Objective: Vital Signs Temp Pulse Resp BP Pulse Ox 36.9 C 78 18 130/77 H 93 03/29/17 20:15 03/30/17 09:25 03/30/17 06:00 03/30/17 09:25 03/30/17 06:00 Laboratory Results 03/30/17 05:00 03/30/17 05:00 03/29/17 03/30/17 03/31/17 05:59 05:59 05:59 Intake Total 1213.6 2177 Output Total 500 1625 200 Balance 713.6 552 -200 PT 14.0 SEC (12.0-15.0) 03/28/17 18:35 INR 1.09 (0.83-1.16) 03/28/17 18:35 - Time Spent With Patient Time Spent with Patient: greater than 35 minutes Time Spent with Patient: Greater than 35 minutes spent on this patients care, greater than 50% of time spent counseling, educating, and coordinating care regarding the above mentioned plan. - Pending Discharge Pending Discharge Within 24 Hours: No Pending Discharge Within 48 Hours: Yes Pending Discharge Date: 04/01/17 Pending Discharge Time: 11:00 - Physical Exam Constitutional: no apparent distress, appears nourished Eyes: PERRL, anicteric sclera Ears, Nose, Mouth, Throat: moist mucous membranes, hearing normal Cardiovascular: regular rate and rhythym, no murmur, rub, or gallop, systolic murmur, other ( unifocal PVCs are noted) Respiratory: no respiratory distress, no rales or rhonchi, clear to auscultation Gastrointestinal: normoactive bowel sounds, soft, non-tender abdomen, no palpable masses Skin: warm Musculoskeletal: full muscle strength, other Neurologic: AAOx3, facial droop ( there is a slight left facial droop that the cisternal reports was not there prior to this admission. It is clearly improving. He has 5/5 muscle strength in the major muscle groups and no subtle motor loss on the left side can be detected other than the facial droop.) Psychiatric: interacting appropriately ICD10 Worksheet Patient Problems: Problems Problem Status Onset CVA (cerebral vascular accident) Acute HTN (hypertension) Acute Hyperlipidemia LDL goal < 100 Acute Occipital stroke Acute TIA (transient ischemic attack) Acute Word finding difficulty Acute
[2017-03-30 19:41] LABS: POTASSIUM 4.1 mEq/L (3.5-5.2)
[2017-03-30] MEDS: ATORVASTATIN CALCIUM 20 MG TAB PO SCH (21:10)
[2017-03-30] MEDS: LISINOPRIL 20 MG TAB PO SCH (21:11)
[2017-03-30] MEDS: FINASTERIDE 5 MG TAB PO SCH (21:11)
[2017-03-30] MEDS: TAMSULOSIN HCL 0.4 MG CAP PO SCH (21:11)
--- NOTE | 2017-03-31 01:25 | CPEKG ---
Heart Rate: 68 RR Interval: 882 P-R Interval: 176 QRSD Interval: 90 QT Interval: 424 QTC Interval: 451 P [place]: 40 QRS [place]: 8 T Wave [place]: 13 EKG Severity - ABNORMAL ECG - EKG Impression: SINUS RHYTHM EKG Impression: MULTIPLE VENTRICULAR PREMATURE COMPLEXES WITH VERTICAL AXIS AND LEFT BUNDLE EKG Impression: BRANCH BLOCK MORPHOLOGY SUGGESTIVE OF RIGHT VENTRICULAR OUTFLOW TRACT ORIGIN EKG Impression: PROBABLE LEFT ATRIAL ABNORMALITY Electronically Signed By: Jeffrey Elizondo 31-Mar-2017 16:21:23
[2017-03-31 05:44] LABS: ANION GAP 8 mEq/L (8-16); CALCIUM 8.9 mg/dL (8.5-10.4); CARBON DIOXIDE 25 mEq/l (22-31); CHLORIDE 107 mEq/L (97-110); CREATININE 1.1 mg/dL (0.7-1.3); GLOMERULAR FILTRATION RATE > 60; GLUCOSE 91 mg/dL (70-100); SODIUM 140 mEq/L (134-144)
[2017-03-31] MEDS: levETIRAcetam 500 MG TAB PO SCH ×2 (09:19→20:51)
[2017-03-31] MEDS: CYANO/VITAMIN B12 1000 MCG TAB PO SCH (09:21)
[2017-03-31] MEDS: METOPROLOL TARTRATE 25 MG TAB PO SCH ×2 (09:21→20:50)
[2017-03-31] MEDS: amLODIPine BESYLATE 5 MG TAB PO SCH (09:22)
[2017-03-31] MEDS: DONEPEZIL HCL 5 MG TAB PO SCH (09:23)
--- NOTE | 2017-03-31 15:55 | HOSPPROG ---
Hospitalist Progress Note Assessment/Plan: 71 yo male new to my care today with know prior CVA, presented With altered mental status # acute encephalopathy thought to be due to seizure ( improving) #Acute seizure disorder #Sepsis previously noted has been ruled out. #Hypokalemia which will be repleted on protocol. This is a new problem today. # Metabolic acidosis, POA, now improving #multiple PVCs seen during the night on telemetry and now only isolated unifocal PVCs. Patient is stable and a sinus rhythm. PVCs continue without runs. #CKD III: probably at baseline now. #Chronic medical: Hypertension which is now normotensive On his home prescriptions of Norvasc lisinopril and metoprolol. Plan: - Continue Keppra and restart aspirin therapy for his prior CVA per Neurology. - Watch BP closely and augment medications as needed. Disposition: plan to transfer [facility] when bed available Subjective: denies any new neurologic deficits. no seizures. no acute complaints Objective: Vital Signs Temp Pulse Resp BP Pulse Ox 36.9 C 74 14 141/63 H 93 03/31/17 07:48 03/31/17 09:21 03/31/17 07:48 03/31/17 09:22 03/31/17 07:48 Laboratory Results 03/30/17 05:00 03/31/17 04:34 03/30/17 03/31/17 04/01/17 05:59 05:59 05:59 Intake Total 2177 700 Output Total 1625 200 1 Balance 552 500 -1 PT 14.0 SEC (12.0-15.0) 03/28/17 18:35 INR 1.09 (0.83-1.16) 03/28/17 18:35 - Physical Exam Constitutional: no apparent distress, appears nourished, not in pain Cardiovascular: regular rate and rhythym, no murmur, rub, or gallop Respiratory: no respiratory distress, no rales or rhonchi, clear to auscultation Gastrointestinal: normoactive bowel sounds, soft, non-tender abdomen, no palpable masses ICD10 Worksheet Patient Problems: Problems Problem Status Onset Occipital stroke Acute HTN (hypertension) Acute Hyperlipidemia LDL goal < 100 Acute TIA (transient ischemic attack) Acute Word finding difficulty Acute CVA (cerebral vascular accident) Acute
[2017-03-31] MEDS: CHOLECALCIFEROL VIT D3 2,000 UNITS TAB/CAP PO SCH (16:29)
[2017-03-31] MEDS: CLOPIDOGREL BISULFATE 75 MG TAB PO SCH (18:21)
[2017-03-31 18:53] LABS: POTASSIUM 4.1 mEq/L (3.5-5.2)
[2017-03-31] MEDS: ATORVASTATIN CALCIUM 20 MG TAB PO SCH (20:51)
[2017-03-31] MEDS: TAMSULOSIN HCL 0.4 MG CAP PO SCH (20:52)
[2017-03-31] MEDS: LISINOPRIL 20 MG TAB PO SCH (20:53)
[2017-03-31] MEDS: FINASTERIDE 5 MG TAB PO SCH (20:54)
[2017-03-31 23:56] VITALS: O2SAT 95
[2017-04-01 05:53] LABS: POTASSIUM 4.2 mEq/L (3.5-5.2)
[2017-04-01 07:46] VITALS: BP 131/78; PULSE 58; RESP 18; TEMP 98
--- NOTE | 2017-04-01 08:50 | PDIAF ---
- Diagnosis Diagnosis: seizure with exacerbation of previous stroke symtoms Code Status: Full Code - Medication Management Discharge Medications: Medications to Continue on Transfer Acetaminophen [Tylenol 325mg (*)] 325 - 650 mg PO Q6HRS PRN 02/22/17 [Last Taken Unknown] Atorvastatin Calcium [Lipitor 20 mg (*)] 60 mg PO HS 02/22/17 [Last Taken ] Clopidogrel Bisulfate [Plavix (*)] 75 mg PO DAILY 02/22/17 [Last Taken 03/28/17] Cyanocobalamin [Vitamin B12 (*)] 1,000 mcg PO DAILY 02/22/17 [Last Taken ] Docusate Sodium [Colace 100 MG (*)] 100 mg PO DAILY PRN 02/22/17 [Last Taken Unknown] Donepezil HCl [Aricept 5 MG (*)] 2.5 mg PO DAILY 02/22/17 [Last Taken 03/28/17] Finasteride [Proscar 5 MG (*)] 5 mg PO HS 02/22/17 [Last Taken 03/28/17] Hydrocortisone 1% [Hydrocortisone 1% cream (*)] 1 alexys TP BID PRN 02/22/17 [Last Taken Unknown] Lisinopril [Zestril 20 mg (*)] 20 mg PO HS 02/22/17 [Last Taken 03/28/17] Metoprolol Tartrate [Lopressor 25 mg (*)] 12.5 mg PO BID 02/22/17 [Last Taken ] Tamsulosin HCl [Flomax 0.4 MG (*)] 0.4 mg PO HS 02/22/17 [Last Taken 03/28/17] amLODIPine BESYLATE [Norvasc 5 mg (*)] 5 mg PO DAILY 02/22/17 [Last Taken ] Cholecalciferol Vit D3 [Vitamin D3 2000 units tab (OTC)] 2,000 units PO DAILY [Last Taken 03/28/17] levETIRAcetam [Keppra 500 mg (*)] 500 mg PO BID #0 tab 03/31/17 [Last Taken Unknown] Discharge Medications: Refer to the Discharge Home Medication list for PRN reason. - Orders Services needed: Registered Nurse, Physical Therapy, Occupational Therapy, Speech Language Pathologist Diet Recommendation: no restrictions on diet Diet Texture: Regular Texture Diet, Thin Liquids, Meds Whole w/Liquids - Follow Up Care Current Providers and Referrals: DEMAR ESPINOZA MD [Other] - As per Instructions
[2017-04-01] MEDS: METOPROLOL TARTRATE 25 MG TAB PO SCH (09:16)
[2017-04-01] MEDS: DONEPEZIL HCL 5 MG TAB PO SCH (09:16)
[2017-04-01] MEDS: CHOLECALCIFEROL VIT D3 2,000 UNITS TAB/CAP PO SCH (09:17)
[2017-04-01] MEDS: amLODIPine BESYLATE 5 MG TAB PO SCH (09:17)
[2017-04-01] MEDS: levETIRAcetam 500 MG TAB PO SCH (09:17)
[2017-04-01] MEDS: CLOPIDOGREL BISULFATE 75 MG TAB PO SCH (09:17)
[2017-04-01] MEDS: CYANO/VITAMIN B12 1000 MCG TAB PO SCH (09:18)
--- NOTE | 2017-04-01 09:21 | GDS ---
[f rep st] DISCHARGE SUMMARY DISCHARGE DIAGNOSES: 1. Resolved acute encephalopathy due to postictal state. 2. Acute seizure disorder. 3. Sepsis that had been ruled out and without signs of infection. 4. Resolved hypokalemia. 5. Metabolic acidosis. Improved. Due to seizure. 6. Multiple premature ventricular contractions. 7. Stage 3 chronic kidney disease. 8. History of cerebrovascular accident. CONSULTANTS: Dr. Garret Gray, neurology. HOSPITAL COURSE AND STAY: Acute encephalopathy due to postictal state in the setting of acute seizu re and prior CVA. Initially it was thought that the patient possibly had another CVA. He did recei ve lytic treatment. Dr. Gray from neurology was consulted on 03/29/2017, who thought his sympt oms were most consistent with an unwitnessed generalized tonic colonic seizure with a prolonged post ictal state, which caused some exacerbation of the patient's previous deficits from a prior CVA. Th e patient was started on Keppra. In the past few days, the patient has been seizure-free with impro ving strength. He continues to be too weak to go home and plans to transfer to a shelter [facility] for further rehabilitation. PHYSICAL EXAM: VITAL SIGNS: On day of discharge, blood pressure 131/78, pulse 58, respiratory rate 18, O2 saturation 95% on 2 L. Temperature afebrile. GENERAL: In no acute distress. HEART: S1, S2. LUNGS: Clear. ABDOMEN: Soft. NEUROLOGIC: Muscle strength 5/5 bilateral lower extremity fle xion, extension at the hip. Muscle strength 5/5 bilateral upper extremity flexion, extension, and g rip. Language is fluent. Mild left facial weakness. PERTINENT LABS AND STUDIES: During this hospital stay, CTA of the head and neck was done. Refer to report. DISCHARGE MEDICATIONS: Please refer to discharge medication reconciliation in [facility] for full det ails. Below is a preliminary list. New medications on hospital discharge: Keppra 500 mg p.o. twice daily. All other home medications were continued including Plavix 75 mg daily. DISCHARGE INSTRUCTIONS: The patient will be transferred to the [facility] for further rehabilitation . He should follow up with Dr. Garret Gray in 2-4 weeks for further titration of his Keppra. /[id number]/MODL
[2017-04-01] MEDS ORDERED: MAGNESIUM HYDROXIDE 30 ML UDCUP ONE (12:47)
[2017-04-01] MEDS ORDERED: BISACODYL 10 MG SUPP PR PRN (13:00)
[2017-04-01] MEDS ORDERED: MAGNESIUM HYDROXIDE 30 ML UDCUP PO PRN (13:00)
== END 2017-04-01 15:05 | DRG 101 ==
LOC: EDUNIT# → F2N 22:17 → F3N 03-30 13:42
PROVIDERS: ADMIT Internal Medicine; ATTEND Family Medicine
DX: G40.909 Epilepsy, unspecified, not intractable, without status epilepticus (principal); E87.2 Acidosis; I69.220 Aphasia following other nontraumatic intracranial hemorrhage; I69.354 Hemiplegia and hemiparesis following cerebral infarction affecting left non-dominant side; I69.398 Other sequelae of cerebral infarction; J98.11 Atelectasis; I12.9 Hypertensive chronic kidney disease with stage 1 through stage 4 chronic kidney disease, or unspecified chronic kidney disease; E78.5 Hyperlipidemia, unspecified; N18.3 Chronic kidney disease, stage 3 (moderate); E87.6 Hypokalemia; I49.3 Ventricular premature depolarization; Z79.02 Long term (current) use of antithrombotics/antiplatelets
CPT/HCPCS: 80305; 82947-QW; 92610-GN; 97116-GP; 97162-GP; 97166-GO; 97530-GP; 97532-GO; 97535-GO; G0480; G8996-GN-CH; G8997-GN-CH; G8998-GN-CH; J2997; J3490; Q9967